=== PATIENT | male | born 1975 | race Caucasian/White ===

== ENCOUNTER 2025-01-19 10:01 | Inpatient (IN) | payer OTHER ==
--- NOTE | 2025-01-19 10:44 | ED ---
SOB HPI - General Chief Complaint: Shortness of Breath Stated Complaint: KALPESH Time Seen by Provider: 01/19/25 10:16 Source: patient, RN notes reviewed Mode of arrival: ambulatory Limitations: no limitations - History of Present Illness Initial Comments: This is a 49-year-old male smoker with history of asthma complaining of SOB and wheezing x 4 days. Patient endorses associated chills and headache. Endorses use of albuterol and Medrol dosepak for the past 3 days at home, receiving a DuoNeb treatment at urgent care before being referred to ER for further workup. Denies fever, hemoptysis, chest pain, dizziness, abdominal pain, N/V/D. MD Complaint: shortness of breath Onset/Timin -: days(s) Consistency: constant Improves With: nothing Known History Of: asthma Treatments Prior to Arrival: bronchodilator - Related Data Previous Rx's Medication Instructions Recorded Albuterol Inhaler [Ventolin Hfa 1 - 2 puff INHALATION Q6H PRN #2 01/24/25 Inhaler] each Aspirin EC [Ecotrin Low Dose] 81 mg PO DAILY #30 tab 01/24/25 Atorvastatin Calcium [Lipitor] 40 mg PO DAILY #30 tab 01/24/25 Budesonide-Formot 160-4.5 Mcg 2 puff INHALATION RT-BID #1 each 01/24/25 [Symbicort 160-4.5 Mcg Inhaler] Dapagliflozin Propanediol [Farxiga] 10 mg PO DAILY #30 tab 01/24/25 Furosemide [Lasix] 40 mg PO DAILY #30 tab 01/24/25 Losartan [Cozaar] 100 mg PO DAILY #60 tab 01/24/25 Spironolactone [Aldactone] 50 mg PO DAILY #60 tab 01/24/25 carvediloL [Coreg*] 12.5 mg PO BID-W/MEALS #60 tab 01/24/25 hydrALAZINE HCL [Apresoline] 50 mg PO TID #90 tab 01/24/25 predniSONE [Deltasone] 40 mg PO DAILY #6 tab 01/24/25 Allergies Allergy/AdvReac Type Severity Reaction Status Date / Time No Known Allergies Allergy Verified 01/19/25 11:26 Review of Systems ROS Statement: Those systems with pertinent positive or pertinent negative responses have been documented in the HPI. ROS Other: All systems not noted in ROS Statement are negative. Past Medical History Past Medical History: Asthma Past Surgical History: Hernia Repair Smoking Status: Current every day smoker General Exam Limitations: no limitations General appearance: alert, in no apparent distress Head exam: Present: atraumatic, normocephalic, normal inspection Eye exam: Present: normal appearance, PERRL, EOMI. Absent: scleral icterus, conjunctival injection, periorbital swelling ENT exam: Present: normal exam, normal oropharynx, mucous membranes moist, TM's normal bilaterally Neck exam: Present: normal inspection. Absent: tenderness, meningismus, lymphadenopathy Respiratory exam: Present: wheezes, accessory muscle use, decreased breath sounds, prolonged expiratory. Absent: respiratory distress, rales, rhonchi, stridor Cardiovascular Exam: Present: regular rate, normal rhythm, normal heart sounds. Absent: systolic murmur, diastolic murmur, rubs, gallop, clicks GI/Abdominal exam: Present: soft, normal bowel sounds. Absent: distended, tenderness, guarding, rebound, rigid Extremities exam: Present: normal inspection, full ROM, normal capillary refill. Absent: tenderness, pedal edema, joint swelling, calf tenderness Back exam: Present: normal inspection Neurological exam: Present: alert, oriented X3, CN II-XII intact Psychiatric exam: Present: normal affect, normal mood Skin exam: Present: warm, dry, intact, normal color. Absent: rash Course Vital Signs 01/19/25 01/19/25 01/19/25 10:12 10:14 10:17 Temperature 98.1 F 98.5 F Pulse Rate 94 100 Pulse Rate [ Pulse Oximetery ] Respiratory 20 28 H 28 H Rate Blood Pressure 159/92 155/103 Blood Pressure [Left Arm] O2 Sat by Pulse 95 95 Oximetry 01/19/25 01/19/25 01/19/25 11:47 12:39 12:49 Temperature Pulse Rate 95 90 92 Pulse Rate [ Pulse Oximetery ] Respiratory 28 H Rate Blood Pressure 155/97 Blood Pressure [Left Arm] O2 Sat by Pulse 95 Oximetry 01/19/25 01/19/25 01/19/25 12:52 14:28 16:19 Temperature 98.0 F Pulse Rate 90 88 Pulse Rate [ 98 Pulse Oximetery ] Respiratory 20 18 Rate Blood Pressure 156/108 Blood Pressure 166/92 [Left Arm] O2 Sat by Pulse 96 93 L Oximetry 01/19/25 01/19/25 16:33 17:42 Temperature 98.8 F Pulse Rate 86 93 Pulse Rate [ Pulse Oximetery ] Respiratory 18 Rate Blood Pressure 172/95 Blood Pressure [Left Arm] O2 Sat by Pulse 94 L Oximetry Medical Decision Making - Medical Decision Making Was pt. sent in by a medical professional or institution (, PA, CONSTRUCTION ACCOUNTANT, urgent care, hospital, or long-term...) When possible be specific @ -No Did you speak to anyone other than the patient for history (EMS, parent, family, police, friend...)? What history was obtained from this source @ -No Did you review nursing and triage notes (agree or disagree)? Why? @ -I reviewed and agree with nursing and triage notes Were old charts reviewed (outside hosp., previous admission, EMS record, old EKG, old radiological studies, urgent care reports/EKG's, long-term records)? Report findings @ -No old charts were reviewed Differential Diagnosis (chest pain, altered mental status, abdominal pain women, abdominal pain men, vaginal bleeding, weakness, fever, dyspnea, syncope, headache, dizziness, GI bleed, back pain, seizure, CVA, palpatations, mental health, musculoskeletal)? @ -Differential Dyspnea: Coronary syndrome, arrhythmia, tamponade, asthma, COPD, pulmonary embolism, pneumonia, pneumothorax, pulmonary effusion, anaphylaxis, diabetic ketoacidosis, flailed chest, pulmonary contusion, diaphragmatic rupture, anemia, neuromuscular, this is not meant to be an all-inclusive list. EKG interpreted by me (3pts min.). @ -Sinus rhythm with LVH and T wave inversion in leads II, III, V5 and V6. No ST deviation. Ventricular rate 95 bpm, LUCIE 129 ms, QRS duration 92 ms, QTc 413 ms. X-rays interpreted by me (1pt min.). @ -CXR shows mild/moderate vascular congestion/edema. CT interpreted by me (1pt min.). @ -None done U/S interpreted by me (1pt. min.). @ -None done What testing was considered but not performed or refused? (CT, X-rays, U/S, labs)? Why? @ -None What meds were considered but not given or refused? Why? @ -None Did you discuss the management of the patient with other professionals (professionals i.e. , PA, CONSTRUCTION ACCOUNTANT, lab, RT, psych nurse, health and social care teacher, barrel liner, teacher, lead security officer, case preparer and liner)? Give summary @ -Spoke to Dr. Grijalva for admission of patient Was smoking cessation discussed for >3mins.? @ -No Was critical care preformed (if so, how long)? @ -No Were there social determinants of health that impacted care today? How? (Homelessness, low income, unemployed, alcoholism, drug addiction, transportation, low edu. Level, literacy, decrease access to med. care, skilled nursing, rehab)? @ -No Was there de-escalation of care discussed even if they declined (Discuss DNR or withdrawal of care, Hospice)? DNR status @ -No What co-morbidities impacted this encounter? (DM, HTN, Smoking, COPD, CAD, Cancer, CVA, ARF, Chemo, Hep., AIDS, mental health diagnosis, sleep apnea, morbid obesity)? @ -None Was patient admitted / discharged? Hospital course, mention meds given and route, prescriptions, significant lab abnormalities, going to OR and other pertinent info. @ -Lab work generally unremarkable with hyperglycemia 114, BNP 1.6K and negative troponin. Cepheid test negative. CXR shows mild/moderate vascular congestion /edema. Patient initially provided DuoNeb and IV Solu-Medrol. IV Lasix given for pulmonary vascular congestion. Spoke to Dr. Grijalva for admission of patient for dyspnea with tachypnea and pulmonary vascular congestion. Discussed patient with Dr. Raman. Undiagnosed new problem with uncertain prognosis? @ -Pulmonary edema Drug Therapy requiring intensive monitoring for toxicity (Heparin, Nitro, Insulin, Cardizem)? @ -No Were any procedures done? @ -No Diagnosis/symptom? @ -Dyspnea, pulmonary edema Acute, or Chronic, or Acute on Chronic? @ -Acute Uncomplicated (without systemic symptoms) or Complicated (systemic symptoms)? @ -Complicated Side effects of treatment? @ -No Exacerbation, Progression, or Severe Exacerbation? @ -Exacerbation Poses a threat to life or bodily function? How? (Chest pain, USA, CT, pneumonia, PE, COPD, DKA, ARF, appy, cholecystitis, CVA, Diverticulitis, Homicidal, Suicidal, threat to staff... and all critical care pts) @ -Pulmonary edema, respiratory failure - Lab Data Result diagrams: 01/19/25 10:40 01/23/25 06:41 Lab Results 01/19/25 01/19/25 01/19/25 Range/Units 10:40 10:40 10:40 WBC 10.6 (3.8-10.6) k/uL RBC 5.36 (4.30-5.90) m/uL Hgb 14.8 (13.0-17.5) gm/dL Hct 46.1 (39.0-53.0) % MCV 86.1 (80.0-100.0) fL MCH 27.7 (25.0-35.0) pg MCHC 32.2 (31.0-37.0) g/dL RDW 14.3 (11.5-15.5) % Plt Count 227 (150-450) k/uL MPV 7.7 Neutrophils % 79 % Lymphocytes % 14 % Monocytes % 5 % Eosinophils % 1 % Basophils % 0 % Neutrophils # 8.3 H (1.3-7.7) k/uL Lymphocytes # 1.4 (1.0-4.8) k/uL Monocytes # 0.5 (0-1.0) k/uL Eosinophils # 0.1 (0-0.7) k/uL Basophils # 0.0 (0-0.2) k/uL PT 11.4 (10.0-12.5) sec INR 1.0 (<1.2) APTT 31.7 H (22.0-30.0) sec VBG pH (7.31-7.41) VBG pCO2 (37-51) mmHg VBG HCO3 (24-28) mmol/L Sodium 138 (137-145) mmol/L Potassium 3.7 (3.5-5.1) mmol/L Chloride 102 (98-107) mmol/L Carbon Dioxide 25 (22-30) mmol/L Anion Gap 11 mmol/L BUN 18 (9-20) mg/dL Creatinine 0.83 (0.66-1.25) mg/dL Est GFR (CKD-EPI)AfAm >90 (>60 ml/min/1.73 sqM) Est GFR (CKD-EPI)NonAf >90 (>60 ml/min/1.73 sqM) Glucose 114 H (74-99) mg/dL Plasma Lactic Acid Amos (0.7-2.0) mmol/L Calcium 9.5 (8.4-10.2) mg/dL Magnesium 1.8 (1.6-2.3) mg/dL Total Bilirubin 0.7 (0.2-1.3) mg/dL AST 25 (17-59) U/L ALT 20 (4-49) U/L Alkaline Phosphatase 66 (38-126) U/L Troponin I (0.000-0.034) ng/mL NT-Pro-B Natriuret Pep 1670 pg/mL Total Protein 6.9 (6.3-8.2) g/dL Albumin 4.3 (3.5-5.0) g/dL Influenza Type A (PCR) (Not Detectd) Influenza Type B (PCR) (Not Detectd) RSV (PCR) (Not Detectd) SARS-CoV-2 (PCR) (Not Detectd) 01/19/25 01/19/25 01/19/25 Range/Units 10:40 10:40 10:41 WBC (3.8-10.6) k/uL RBC (4.30-5.90) m/uL Hgb (13.0-17.5) gm/dL Hct (39.0-53.0) % MCV (80.0-100.0) fL MCH (25.0-35.0) pg MCHC (31.0-37.0) g/dL RDW (11.5-15.5) % Plt Count (150-450) k/uL MPV Neutrophils % % Lymphocytes % % Monocytes % % Eosinophils % % Basophils % % Neutrophils # (1.3-7.7) k/uL Lymphocytes # (1.0-4.8) k/uL Monocytes # (0-1.0) k/uL Eosinophils # (0-0.7) k/uL Basophils # (0-0.2) k/uL PT (10.0-12.5) sec INR (<1.2) APTT (22.0-30.0) sec VBG pH (7.31-7.41) VBG pCO2 (37-51) mmHg VBG HCO3 (24-28) mmol/L Sodium (137-145) mmol/L Potassium (3.5-5.1) mmol/L Chloride (98-107) mmol/L Carbon Dioxide (22-30) mmol/L Anion Gap mmol/L BUN (9-20) mg/dL Creatinine (0.66-1.25) mg/dL Est GFR (CKD-EPI)AfAm (>60 ml/min/1.73 sqM) Est GFR (CKD-EPI)NonAf (>60 ml/min/1.73 sqM) Glucose (74-99) mg/dL Plasma Lactic Acid Amos 1.3 (0.7-2.0) mmol/L Calcium (8.4-10.2) mg/dL Magnesium (1.6-2.3) mg/dL Total Bilirubin (0.2-1.3) mg/dL AST (17-59) U/L ALT (4-49) U/L Alkaline Phosphatase (38-126) U/L Troponin I 0.016 (0.000-0.034) ng/mL NT-Pro-B Natriuret Pep pg/mL Total Protein (6.3-8.2) g/dL Albumin (3.5-5.0) g/dL Influenza Type A (PCR) Not Detected (Not Detectd) Influenza Type B (PCR) Not Detected (Not Detectd) RSV (PCR) Not Detected (Not Detectd) SARS-CoV-2 (PCR) Not Detected (Not Detectd) 01/19/25 Range/Units 10:41 WBC (3.8-10.6) k/uL RBC (4.30-5.90) m/uL Hgb (13.0-17.5) gm/dL Hct (39.0-53.0) % MCV (80.0-100.0) fL MCH (25.0-35.0) pg MCHC (31.0-37.0) g/dL RDW (11.5-15.5) % Plt Count (150-450) k/uL MPV Neutrophils % % Lymphocytes % % Monocytes % % Eosinophils % % Basophils % % Neutrophils # (1.3-7.7) k/uL Lymphocytes # (1.0-4.8) k/uL Monocytes # (0-1.0) k/uL Eosinophils # (0-0.7) k/uL Basophils # (0-0.2) k/uL PT (10.0-12.5) sec INR (<1.2) APTT (22.0-30.0) sec VBG pH 7.42 H (7.31-7.41) VBG pCO2 42 (37-51) mmHg VBG HCO3 27 (24-28) mmol/L Sodium (137-145) mmol/L Potassium (3.5-5.1) mmol/L Chloride (98-107) mmol/L Carbon Dioxide (22-30) mmol/L Anion Gap mmol/L BUN (9-20) mg/dL Creatinine (0.66-1.25) mg/dL Est GFR (CKD-EPI)AfAm (>60 ml/min/1.73 sqM) Est GFR (CKD-EPI)NonAf (>60 ml/min/1.73 sqM) Glucose (74-99) mg/dL Plasma Lactic Acid Amos (0.7-2.0) mmol/L Calcium (8.4-10.2) mg/dL Magnesium (1.6-2.3) mg/dL Total Bilirubin (0.2-1.3) mg/dL AST (17-59) U/L ALT (4-49) U/L Alkaline Phosphatase (38-126) U/L Troponin I (0.000-0.034) ng/mL NT-Pro-B Natriuret Pep pg/mL Total Protein (6.3-8.2) g/dL Albumin (3.5-5.0) g/dL Influenza Type A (PCR) (Not Detectd) Influenza Type B (PCR) (Not Detectd) RSV (PCR) (Not Detectd) SARS-CoV-2 (PCR) (Not Detectd) Disposition Clinical Impression: Pulmonary edema Disposition: ADMITTED IP TO THIS HOSP Condition: Fair Is patient prescribed a controlled substance at d/c from ED?: No Time of Disposition: 12: Decision Date: 01/19/25 Decision Time: 12:27
[2025-01-19] MEDS: methylPREDNISolone SOD SUCCI 125 MG/2 ML VIAL IV STA (10:58)
[2025-01-19 11:14] LABS: VBG PH 7.42 (7.31-7.41)
[2025-01-19 11:18] LABS: Basophils % (A) 0 %; Eosinophils # (A) 0.1 k/uL (0-0.7); Eosinophils % (A) 1 %; HCT 46.1 % (39.0-53.0); HGB 14.8 gm/dL (13.0-17.5); Lymphocytes # (A) 1.4 k/uL (1.0-4.8); Lymphocytes % (A) 14 %; MCH 27.7 pg (25.0-35.0); MCHC 32.2 g/dL (31.0-37.0); MCV 86.1 fL (80.0-100.0); Mean Platelet Volume 7.7; Monocytes # (A) 0.5 k/uL (0-1.0); Monocytes % (A) 5 %; Neutrophils # (A) 8.3 k/uL (1.3-7.7); Neutrophils % (A) 79 %; Platelet Count 227 k/uL (150-450); RBC 5.36 m/uL (4.30-5.90); RDW 14.3 % (11.5-15.5); WBC 10.6 k/uL (3.8-10.6)
--- NOTE | 2025-01-19 11:20 | XR ---
EXAMINATION TYPE: XR chest 2V DATE OF EXAM: 01/19/2025 11:08 AM COMPARISON: None. CLINICAL INDICATION: Male, 49 years old with history of difficulty breathing, TECHNIQUE: Frontal and lateral views of the chest are obtained. FINDINGS: There is bilateral perihilar increased markings. No pleural effusion or pneumothorax seen bilaterally. The cardiac silhouette size is within normal limits. The osseous structures are intact . IMPRESSION: Suspect mild to moderate central vascular congestion or edema. Correlate for fluid overlo ad state. [facility], , 01/19/2025 11:18 AM
[2025-01-19 11:26] LABS: ALT 20 U/L (4-49); AST 25 U/L (17-59); African American GFR (CKD) >90 (>60 ml/min/1.73 sqM); Albumin 4.3 g/dL (3.5-5.0); Alkaline Phosphatase 66 U/L (38-126); Anion Gap 11 mmol/L; Blood Urea Nitrogen 18 mg/dL (9-20); Calcium 9.5 mg/dL (8.4-10.2); Carbon Dioxide 25 mmol/L (22-30); Chloride 102 mmol/L (98-107); Glucose 114 mg/dL (74-99); Magnesium 1.8 mg/dL (1.6-2.3); Non-African American GFR(CKD) >90 (>60 ml/min/1.73 sqM); Potassium 3.7 mmol/L (3.5-5.1); Sodium 138 mmol/L (137-145); Total Bilirubin 0.7 mg/dL (0.2-1.3); Total Protein 6.9 g/dL (6.3-8.2)
[2025-01-19 11:33] LABS: NT-Pro-B-Type Natriuretic Pept 1670 pg/mL
[2025-01-19 11:39] LABS: Partial Thromboplastin Time 31.7 sec (22.0-30.0); Prothrombin Time 11.4 sec (10.0-12.5)
[2025-01-19 11:54] LABS: Influenza A Not Detected (Not Detectd); Influenza B Not Detected (Not Detectd); RSV Not Detected (Not Detectd)
[2025-01-19] MEDS: IPRATROPIUM-ALBUTEROL 3 ML NEB INHALATION STA (12:38)
[2025-01-19] MEDS: FUROSEMIDE 10 MG/ML 4 ML VIAL IV STA (12:50)
[2025-01-19] MEDS ORDERED: NALOXONE 0.4 MG/ML 1 ML VIAL IV PRN (13:10)
[2025-01-19] MEDS ORDERED: KETOROLAC 15 MG/ML 1 ML VIAL IVP PRN (13:10)
[2025-01-19] MEDS ORDERED: ONDANSETRON 4 MG/2 ML VIAL IVP PRN (13:10)
[2025-01-19] MEDS: methylPREDNISolone SOD SUCCI 125 MG/2 ML VIAL IV SCH ×2 (13:14→18:21)
[2025-01-19] MEDS: IPRATROPIUM-ALBUTEROL 3 ML NEB INHALATION SCH (13:23)
[2025-01-19] MEDS ORDERED: ALPRAZolam 0.5 MG TAB PO PRN (14:01)
[2025-01-19] MEDS: ALPRAZolam 0.5 MG TAB PO STA (14:36)
[2025-01-19] MEDS ORDERED: methylPREDNISolone SOD SUCCI 125 MG/2 ML VIAL IV SCH (18:00)
--- NOTE | 2025-01-19 18:43 | P.HPIM ---
History of Present Illness This is a pleasant 49 years old male with no significant past medical history Presents because of dyspnea for 4 to 5 days associated with cough and white phlegm No chest pain Patient smokes about 1 pack/day and he was counseled to quit and he agrees to the nicotine patch patient denies GI/ symptoms Has little headache but no dizziness weakness numbness No significant leg swelling He is not using any home oxygen and currently he is on 2 L oxygen via nasal cannula with oxygen saturation 94% Patient is hemodynamically stable though, afebrile, blood pressure slightly elevated CBC, BMP, liver enzymes INR and troponin were negative Mild virus Influenza A and type B, RSV, SARS (coronavirus) are undetected Chest x-ray read by radiologist as mild to moderate CHF, when I reviewed the chest x-ray myself looks more like COPD changes proBNP is mildly elevated 1670 EKG showing sinus rhythm at 95 with LVH criteria and some mild ST depression in the lateral lead related to her hypertrophy changes Review of Systems Review of systems CONSTITUTIONAL: No fever, no malaise, no fatigue. HEENT: No recent visual problems or hearing problems. Denied any sore throat. CARDIOVASCULAR: No orthopnea, PND, no palpitations, no syncope. PULMONARY: No chest wall tenderness, no hemoptysis. GASTROINTESTINAL: No diarrhea, no nausea, no vomiting, no abdominal pain. Normoactive bowel sounds. NEUROLOGICAL: No headaches, no weakness, no numbness. HEMATOLOGICAL: Denies any bleeding or petechiae. GENITOURINARY: Denies any burning micturition, frequency, or urgency. MUSCULOSKELETAL/RHEUMATOLOGICAL: Denies any joint pain, swelling, or any muscle pain. ENDOCRINE: Denies any polyuria or polydipsia. Past Medical History Past Medical History: Asthma History of Any Multi-Drug Resistant Organisms: None Reported Past Surgical History: Hernia Repair Past Anesthesia/Blood Transfusion Reactions: No Reported Reaction Smoking Status: Current every day smoker Medications and Allergies Home Medications Medication Instructions Recorded Confirmed Type No Known Home Medications 01/19/25 01/19/25 History Allergies Allergy/AdvReac Type Severity Reaction Status Date / Time No Known Allergies Allergy Verified 01/19/25 11:26 Physical Exam Vitals: Vital Signs Temp Pulse Pulse Resp BP BP Pulse Ox 01/19/25 17:42 98.8 F 93 18 172/95 94 L 01/19/25 16:33 86 01/19/25 16:19 88 01/19/25 14:28 98.0 F 98 18 166/92 93 L 01/19/25 12:52 90 20 156/108 96 01/19/25 12:49 92 01/19/25 12:39 90 01/19/25 11:47 95 28 H 155/97 95 01/19/25 10:17 28 H 01/19/25 10:14 98.5 F 100 28 H 155/103 95 01/19/25 10:12 98.1 F 94 20 159/92 95 Intake and Output 01/19/25 01/19/25 01/19/25 06:59 14:59 22:59 Other: Weight 75.296 kg GENERAL: The patient is alert and oriented x3, not in any acute distress. Well developed, well nourished. HEENT: Pupils are round and equally reacting to light. EOMI. No scleral icterus. No conjunctival pallor. Normocephalic, atraumatic. No pharyngeal erythema. No thyromegaly. CARDIOVASCULAR: S1 and S2 present. No murmurs, rubs, or gallops. -PULMONARY: Chest is clear to auscultation, scattered wheezing , no crackles. ABDOMEN: Soft, nontender, nondistended, normoactive bowel sounds. No palpable organomegaly. MUSCULOSKELETAL: No joint swelling or deformity. EXTREMITIES: No cyanosis, clubbing, or pedal edema. NEUROLOGICAL: Gross neurological examination did not reveal any focal deficits. SKIN: No rashes. no petechiae. Results CBC & Chem 7: 01/19/25 10:40 01/19/25 10:40 Labs: Abnormal Lab Results - Last 24 Hours (Table) 01/19/25 01/19/25 01/19/25 Range/Units 10:40 10:40 10:40 Neutrophils # 8.3 H (1.3-7.7) k/uL APTT 31.7 H (22.0-30.0) sec VBG pH (7.31-7.41) Glucose 114 H (74-99) mg/dL 01/19/25 Range/Units 10:41 Neutrophils # (1.3-7.7) k/uL APTT (22.0-30.0) sec VBG pH 7.42 H (7.31-7.41) Glucose (74-99) mg/dL Thrombosis Risk Factor Assmnt - Choose All That Apply Each Factor Represents 1 point: Age 41-60 years Thrombosis Risk Factor Assessment Total Risk Factor Score: 1 Thrombosis Risk Factor Assessment Level: Low Risk Assessment and Plan Assessment: Acute COPD exacerbation Mild acute CHF, unknown ejection fraction Possible left ventricular hypertrophy Hypertension, uncontrolled Nicotine dependence Plan: Continue with IV Solu-Medrol Continue with updraft Pulmonary team consult Cardiology team consult Check echocardiogram Further recommendation based on the clinical course DVT prophylaxis subcutaneous heparin GI prophylaxis Pepcid Prognosis is guarded
[2025-01-19] MEDS: HEPARIN SODIUM,PORCINE 5,000 UNIT/ML 1 ML VIAL SQ SCH (20:15)
[2025-01-19] MEDS: FAMOTIDINE 20 MG/2 ML VIAL IV SCH (20:15)
--- NOTE | 2025-01-20 01:43 | P.CNPUL ---
History of Present Illness Consult date: 01/20/25 Requesting physician: Darwin Grijalva Reason for consult: COPD Chief complaint: Shortness of breath History of present illness: Patient is a 49-year-old male with past medical history significant for asthma/COPD. He is a tobacco current smoker and carries a significant smoking history of 1 to 1-1/2 packs/day for over 30 years. Does have history of childhood asthma. Patient states over the last month he is been more short of breath with intermittent and wheezing on exertion. Over the last 2 to 3 days this is progressively worsened. Did go to urgent care center and was given DuoNeb treatments without much relief. He was directed to emergency department. Workup in the emergency department includes a chest x-ray which does not show any acute cardiopulmonary process. No focal infiltrates or evidence of pneumonia. No pleural effusions, pneumothoraces. CBC unremarkable for leukocytosis. Hemoglobin stable at 14.8 g/dL. Platelets 227. VBG showing a pH of 7.42 and a pCO2 of 42. CMP also unremarkable, electrolytes WDL, creatinine 0.83, glucose 114, LFTs not elevated. Troponin 0.016, NT proBNP 1670. EKG: Sinus rhythm, rate 95 bpm, nonspecific ST/T wave changes. Viral screen negative for influenza, RSV, COVID. Patient currently being evaluated on the cardiac stepdown unit. Currently on 2 L/min nasal cannula. Has diffuse expiratory wheezing. Endorses severe shortness of breath, chest tightness, nonproductive coughing which has worsened over the last 2 to 3 days. Denies any sick contacts. Denies rhinorrhea, sore throat, sinus congestion. Denies any fever/chills, sputum production, hemoptysis, chest pain. Denies any lower extremity swelling, orthopnea, PND. He has been started on a combination of bronchodilators and IV Solu-Medrol. Most recent vital signs: Temperature 98.3 F, heart rate 98 bpm, blood pressure 149/86 mmHg, nontachypneic, SpO2 reading 96% on 2 L/min nasal cannula. Review of Systems Constitutional: Reports fatigue, Denies chills, Denies fever, Denies night sweats, Denies poor appetite, Denies weight gain, Denies weight loss Ears, nose, mouth and throat: Reports as per HPI Cardiovascular: Denies chest pain, Denies leg edema, Denies lightheadedness, Denies orthopnea, Denies palpitations, Denies paroxysmal nocturnal dyspnea, Denies syncope Respiratory: Reports as per HPI Gastrointestinal: Denies abdominal pain, Denies diarrhea, Denies nausea, Denies vomiting Genitourinary: Denies dysuria Musculoskeletal: Denies limitation of motion Integumentary: Denies rash Neurological: Denies seizures, Denies syncope Psychiatric: Denies anxiety, Denies depression Past Medical History Past Medical History: Asthma History of Any Multi-Drug Resistant Organisms: None Reported Past Surgical History: Hernia Repair Past Anesthesia/Blood Transfusion Reactions: No Reported Reaction Smoking Status: Current every day smoker Medications and Allergies Home Medications Medication Instructions Recorded Confirmed Type No Known Home Medications 01/19/25 01/19/25 History Allergies Allergy/AdvReac Type Severity Reaction Status Date / Time No Known Allergies Allergy Verified 01/19/25 11:26 Physical Exam Vitals: Vital Signs Temp Pulse Pulse Resp BP BP Pulse Ox 01/19/25 20:32 98 01/19/25 20:24 96 01/19/25 20:00 98.3 F 97 18 149/86 96 01/19/25 17:42 98.8 F 93 18 172/95 94 L 01/19/25 16:33 86 01/19/25 16:19 88 01/19/25 14:28 98.0 F 98 18 166/92 93 L 01/19/25 12:52 90 20 156/108 96 01/19/25 12:49 92 01/19/25 12:39 90 01/19/25 11:47 95 28 H 155/97 95 01/19/25 10:17 28 H 01/19/25 10:14 98.5 F 100 28 H 155/103 95 01/19/25 10:12 98.1 F 94 20 159/92 95 Intake and Output 01/19/25 01/19/25 01/20/25 14:59 22:59 06:59 Other: Voiding Method Toilet Urinal Weight 75.296 kg GENERAL EXAM: Alert, 49-year-old male, sitting erect in bed, fairly comfortable in no apparent distress. HEAD: Normocephalic and atraumatic EYES: Normal reaction of pupils, equal size. NOSE: Clear with pink turbinates. THROAT: No erythema or exudates. NECK: No masses, no JVD. CHEST: No chest wall deformity. LUNGS: Equal air entry with diffuse expiratory wheezing heard throughout. On 2 L/min nasal cannula. No conversational dyspnea or accessory muscle use.. CVS: S1 and S2 normal with no audible murmur, regular rhythm. No extra heart sounds ABDOMEN: No hepatosplenomegaly, active bowel sounds, no guarding or rigidity. SPINE: No scoliosis or deformity SKIN: No rashes CENTRAL NERVOUS SYSTEM: No focal deficits, tone is normal in all 4 extremities. EXTREMITIES: There is no peripheral edema, clubbing, or cyanosis. Peripheral pulses are intact. Results - Laboratory Findings CBC and BMP: 01/19/25 10:40 01/19/25 10:40 PT/INR, D-dimer PT 11.4 sec (10.0-12.5) 01/19/25 10:40 INR 1.0 (<1.2) 01/19/25 10:40 Abnormal lab findings: Abnormal Labs 01/19/25 01/19/25 01/19/25 10:40 10:40 10:40 Neutrophils # 8.3 H APTT 31.7 H VBG pH Glucose 114 H 01/19/25 10:41 Neutrophils # APTT VBG pH 7.42 H Glucose - Diagnostic Findings Chest x-ray: image reviewed Assessment and Plan Assessment: Acute exacerbation of asthma/COPD Acute hypoxemic respiratory failure, currently on 2 L/min nasal cannula, secondary to above Chronic ongoing tobacco dependence, with over [id number] history Hypertension Plan: Patient's medications, labs, chest x-ray reviewed No focal infiltrates or evidence of pneumonia Viral screen unremarkable for influenza A/B, RSV, COVID Continue combination of DuoNebs [id number] and IV Solu-Medrol Add Symbicort inhaler Smoking cessation counseling performed Nicotine patch previously offered Echocardiogram was previously ordered Cardiology also asked to see this patient We will continue to follow I have personally seen and examined the patient, performed the documentation and the assessment and plan as written. Number of minutes spent on the visit:20 Time with Patient: Greater than 30
[2025-01-20] MEDS: NICOTINE 21MG/24HR PATCH TRANSDERM SCH (03:38)
[2025-01-20] MEDS: IPRATROPIUM-ALBUTEROL 3 ML NEB INHALATION PRN (05:20)
--- NOTE | 2025-01-20 07:59 | CA ---
Transthoracic Echo Report Name: Compa Schmitz Age: 49 Gender: M : 1975 Exam Date: 01/19/2025 18:27 Exam Location: [facility] Ht (in): 66 Wt (lb): 166 Ordering Physician: Darwin Grijalva MD Attending/Referring Phys: [id number], Rudi [employer] Operation Coordinator Bhavana Mcwilliams RDCS Procedure CPT: Indications: Chest Pain Cardiac Hx: Technical Quality: Good Contrast 1: Total Dose (mL): Contrast 2: Total Dose (mL): MEASUREMENTS (Male / Female) Normal Values 2D ECHO LV Diastolic Diameter PLAX 6.8 cm 4.2 - 5.9 / 3.9 - 5.3 cm LV Systolic Diameter PLAX 5.9 cm IVS Diastolic Thickness 0.9 cm 0.6 - 1.0 / 0.6 - 0.9 cm LVPW Diastolic Thickness 0.9 cm 0.6 - 1.0 / 0.6 - 0.9 cm LV Relative Wall Thickness 0.3 LVOT Diameter 2.3 cm LV Diastolic Volume MOD BP 224.1 cm??? 67 - 155 / 56 - 104 cm??? LV Systolic Volume MOD BP 153.1 cm??? 22 - 58 / 19 - 49 cm??? LV Ejection Fraction MOD BP 31.7 % >= 55 % LV Cardiac Index MOD BP 3421.0 cm???/min???m??? LV Diastolic Volume MOD 4C 219.7 cm??? LV Systolic Volume MOD 4C 140.4 cm??? LV Ejection Fraction MOD 4C 36.1 % LV Cardiac Index MOD 4C 3825.3 cm???/min???m??? LV Diastolic Length 4C 9.4 cm LV Systolic Length 4C 8.4 cm LV Diastolic Volume MOD 2C 220.2 cm??? LV Systolic Volume MOD 2C 165.2 cm??? LV Ejection Fraction MOD 2C 25.0 % LV Cardiac Index MOD 2C 2649.0 cm???/min???m??? LV Diastolic Length 2C 9.8 cm LV Systolic Length 2C 8.5 cm LA Volume 59.1 cm??? 18 - 58 / 22 - 52 cm??? LA Volume Index 31.3 cm???/m??? 16 - 28 cm???/m??? Ascending Aorta Diameter 3.2 cm M-MODE LV Diastolic Diameter MM 6.8 cm 4.2 - 5.9 / 3.9 - 5.3 cm LV Systolic Diameter MM 5.8 cm LV Cardiac Index MM Eusebioich 3633.4 cm???/min???m??? IVS Diastolic Thickness MM 1.8 cm 0.6 - 1.0 / 0.6 - 0.9 cm LVPW Diastolic Thickness MM 1.4 cm 0.6 - 1.0 / 0.6 - 0.9 cm LV Relative Wall Thickness MM 0.5 0.24 - 0.42 / 0.22 - 0.42 LV Mass Index MM 299.1 g/m??? 49 - 115 / 43 - 95 g/m??? DOPPLER AV Peak Velocity 154.6 cm/s AV Peak Gradient 9.6 mmHg AV Mean Velocity 105.1 cm/s AV Mean Gradient 5.1 mmHg AV Velocity Time Integral 25.0 cm LVOT Peak Velocity 123.4 cm/s LVOT Peak Gradient 6.1 mmHg LVOT Velocity Time Integral 20.5 cm LVOT Stroke Volume 87.1 cm??? LVOT Stroke Volume Index 47.1 ml/m??? LVOT Cardiac Index 4197.4 cm???/min???m??? AV Area Cont Eq vti 3.5 cm??? AV Area Cont Eq pk 3.4 cm??? MV Area PHT 5.4 cm??? Mitral E Point Velocity 64.2 cm/s Mitral A Point Velocity 65.0 cm/s Mitral E to A Ratio 1.0 MV Deceleration Time 140.2 ms PV Peak Velocity 113.7 cm/s PV Peak Gradient 5.2 mmHg FINDINGS Left Ventricle Left ventricular ejection fraction is estimated at 25-30 %. Mildly increased posterior wall thickness. Severely increased left ventricular diastolic volume. Severely decreased left ventricular ejection fraction. Right Ventricle Normal right ventricular size and function. Unable to estimate the right ventricular systolic pressure. Right Atrium Normal right atrial size. Left Atrium Mildly increased left atrial volume. Mitral Valve Structurally normal mitral valve. No evidence for mitral valve prolapse. No mitral stenosis. Mild mitral regurgitation. Aortic Valve Trileaflet aortic valve. No aortic valve stenosis or regurgitation. Tricuspid Valve Structurally normal tricuspid valve. No tricuspid stenosis. Trace tricuspid regurgitation. Pulmonic Valve Structurally normal pulmonic valve. No pulmonic stenosis. No pulmonic regurgitation. Pericardium No pericardial effusion. Aorta Normal size aortic root and proximal ascending aorta. CONCLUSIONS Left ventricular ejection fraction is estimated at 25-30 %. Dilated LV cavity mild LA dilatation mild mitral regurgitaion Previewed by: Dr Daniel Kwon (Electronically Signed) Final Date: 20 January 2025 07:58
[2025-01-20] MEDS: SYMBICORT 160-4.5 MCG INHALER INHALATION SCH (09:00)
[2025-01-20] MEDS: IPRATROPIUM-ALBUTEROL 3 ML NEB INHALATION SCH (09:00)
--- NOTE | 2025-01-20 09:36 | P.PN ---
Subjective This is a pleasant 49 years old male with no significant past medical history Presents because of dyspnea for 4 to 5 days associated with cough and white phlegm No chest pain Patient smokes about 1 pack/day and he was counseled to quit and he agrees to the nicotine patch patient denies GI/ symptoms Has little headache but no dizziness weakness numbness No significant leg swelling He is not using any home oxygen and currently he is on 2 L oxygen via nasal cannula with oxygen saturation 94% Patient is hemodynamically stable though, afebrile, blood pressure slightly elevated CBC, BMP, liver enzymes INR and troponin were negative Mild virus Influenza A and type B, RSV, SARS (coronavirus) are undetected Chest x-ray read by radiologist as mild to moderate CHF, when I reviewed the chest x-ray myself looks more like COPD changes proBNP is mildly elevated 1670 EKG showing sinus rhythm at 95 with LVH criteria and some mild ST depression in the lateral lead related to her hypertrophy changes 01/20 Patient feels the same still short of breath He still has extensive bilateral wheezing. Also with careful examination he has basal crepitation No leg edema. No other new complaints. Patient asking if he is going to stay 1 more night. Echocardiogram showed low ejection fraction 25 to 30% with dilated left ventricle. Patient currently remains on IV Solu-Medrol 60 mg. He received 1 time dose of IV Lasix, will going to place him on 40 mg of IV Lasix daily. Cardiology will evaluate the patient Review of systems CONSTITUTIONAL: No fever, no malaise, no fatigue. HEENT: No recent visual problems or hearing problems. Denied any sore throat. CARDIOVASCULAR: No orthopnea, PND, no palpitations, no syncope. HEMATOLOGICAL: Denies any bleeding or petechiae. GENITOURINARY: Denies any burning micturition, frequency, or urgency. MUSCULOSKELETAL/RHEUMATOLOGICAL: Denies any joint pain, swelling, or any muscle pain. ENDOCRINE: Denies any polyuria or polydipsia. Active Medications Generic Name Dose Route Start Last Admin Trade Name Freq PRN Reason Stop Dose Admin Albuterol/Ipratropium 3 ml 01/20/25 08:00 01/20/25 09:00 Ipratropium-Albuterol 3 Ml Neb INHALATION 3 ml RT-QID EMILY Administration Albuterol/Ipratropium 3 ml 01/19/25 20:25 01/20/25 05:20 Ipratropium-Albuterol 3 Ml Neb INHALATION 3 ml RT-Q2H PRN Administration Shortness Of Breath Or Wheezing Alprazolam 0.5 mg 01/19/25 14:01 Alprazolam 0.5 Mg Tab PO BID PRN Anxiety Budesonide/Formoterol Fumarate 2 puff 01/20/25 08:00 01/20/25 09:00 Symbicort 160-4.5 Mcg Inhaler INHALATION 2 puff RT-BID EMILY Administration Famotidine 20 mg 01/19/25 21:00 01/20/25 08:11 Famotidine 20 Mg/2 Ml Vial IV 20 mg Q12HR EMILY Administration Furosemide 40 mg 01/20/25 09:45 Furosemide 10 Mg/Ml 4 Ml Vial IV DAILY [facility] Heparin Sodium (Porcine) 5,000 unit 01/19/25 21:00 01/20/25 08:11 Heparin Sodium,Porcine 5,000 Unit/Ml 1 Ml Vial SQ 5,000 unit Q12HR EMILY Administration Ketorolac Tromethamine 15 mg 01/19/25 13:10 Ketorolac 15 Mg/Ml 1 Ml Vial IVP 01/22/25 13:11 Q6HR PRN Moderate Pain (Scale 4 to 6) Methylprednisolone Sodium Succinate 60 mg 01/19/25 18:00 01/20/25 04:59 Methylprednisolone Sod Succi 125 Mg/2 Ml Vial IV 60 mg Q6HR EMILY Administration Naloxone HCl 0.2 mg 01/19/25 13:10 Naloxone 0.4 Mg/Ml 1 Ml Vial IV Q2M PRN Opioid Reversal Nicotine 1 patch 01/19/25 18:45 01/20/25 08:09 Nicotine 21mg/24hr Patch TRANSDERM Not Given DAILY [facility] Ondansetron HCl 4 mg 01/19/25 13:10 Ondansetron 4 Mg/2 Ml Vial IVP Q8HR PRN Nausea And Vomiting Objective - Vital Signs Vital signs: Vital Signs Temp 98.0 F 01/20/25 08:00 Pulse 92 01/20/25 09:11 Resp 18 01/20/25 08:00 BP 162/101 01/20/25 08:00 Pulse Ox 98 01/20/25 09:01 FiO2 Intake & Output 01/19/25 01/20/25 01/20/25 18:59 06:59 18:59 Weight 75.296 kg 71.1 kg Other: Voiding Method Toilet Urinal # Voids 2 - Exam GENERAL: The patient is alert and oriented x3, not in any acute distress. Well developed, well nourished. HEENT: Pupils are round and equally reacting to light. EOMI. No scleral icterus. No conjunctival pallor. Normocephalic, atraumatic. No pharyngeal erythema. No thyromegaly. CARDIOVASCULAR: S1 and S2 present. No murmurs, rubs, or gallops. PULMONARY: Chest is clear to auscultation, n bilateral extensive wheezing , mild bilateral basal crackles. ABDOMEN: Soft, nontender, nondistended, normoactive bowel sounds. No palpable organomegaly. MUSCULOSKELETAL: No joint swelling or deformity. EXTREMITIES: No cyanosis, clubbing, or pedal edema. NEUROLOGICAL: Gross neurological examination did not reveal any focal deficits. SKIN: No rashes. no petechiae. - Labs CBC & Chem 7: 01/19/25 10:40 01/19/25 10:40 Labs: Abnormal Lab Results - Last 24 Hours (Table) 01/19/25 01/19/25 01/19/25 Range/Units 10:40 10:40 10:40 Neutrophils # 8.3 H (1.3-7.7) k/uL APTT 31.7 H (22.0-30.0) sec VBG pH (7.31-7.41) Glucose 114 H (74-99) mg/dL 01/19/25 Range/Units 10:41 Neutrophils # (1.3-7.7) k/uL APTT (22.0-30.0) sec VBG pH 7.42 H (7.31-7.41) Glucose (74-99) mg/dL Assessment and Plan Assessment: Acute COPD exacerbation Mild acute CHF, with low ejection fraction 25 to 30% Possible left ventricular hypertrophy, echocardiogram: Showed dilated left ventricle Hypertension, uncontrolled Nicotine dependence Plan: Continue with IV Solu-Medrol Continue with updraft Start IV Lasix 40 mg daily Pulmonary team consult Cardiology team consult Check echocardiogram reviewed Further recommendation based on the clinical course DVT prophylaxis subcutaneous heparin GI prophylaxis Pepcid Prognosis is guarded
[2025-01-20] MEDS: METOPROLOL SUCCINATE (ER) 25 MG TAB.ER.24H PO SCH (11:31)
[2025-01-20] MEDS: LOSARTAN 50 MG TAB PO SCH (11:31)
[2025-01-20] MEDS: FUROSEMIDE 10 MG/ML 4 ML VIAL IV SCH (11:32)
--- NOTE | 2025-01-20 13:10 | P.CRDCN ---
History of Present Illness Consult date: 01/20/25 Reason for Consult (text): Pulmonary edema History of present illness: This is a 49-year-old male with past medical history of asthma as a child, COPD, tobacco use and dependence. We have been asked to evaluate the patient for pulmonary edema. Patient developed shortness of breath about 1 month ago with dyspnea on exertion. Over the past couple days its progressively worsened and he went to the urgent care center. He was given a nebulizer treatment without improvement and was sent to the emergency center at [facility] for further evaluation and treatment. Patient has not seen PCP for several years. He does not check his blood pressure at home. Patient currently denies any chest pain or chest pressure. He states he still has a cough with minimal sputum production. He feels that his breathing is not improved. Patient has never had a stress test done in the past. Blood pressure 162/101, heart rate 105, pulse ox 98% on 2 L nasal cannula. Patient is status post 1 dose of IV Lasix 40 mg. Patient is an active smoker of 1 to 1-1/2 packs/day for 30 years. Patient drinks 2-3 aldoholic drinks per day. Dad had NC in early 70s. Discussed results of echocardiogram and possible underlying etiologies. Discussed recommendations for meidcal management, alcohol avoidance and smoking cessation. Plan to start medications at this time and make adjustments. Pulmonary medicine is also following the patient. -EKG: Sinus rhythm with LVH -Chest x-ray: Suspect mild to moderate central vascular congestion or edema. Correlate for fluid overload state. -Echocardiogram reveals EF of 25 to 30%, dilated LV cavity, mild LA dilatation, mild mitral regurgitation. -Laboratory studies: CBC unremarkable. Venous pH 7.42, pCO2 42 and bicarb 27. Electrolytes and renal function are normal. Troponin negative x 1. proBNP 1670, Cepheid viral panel not detected. -Home cardiac medications: None Review Of Systems: At the time of my exam: CONSTITUTIONAL: Denies fever or chills. HEENT: Denies blurred vision, vision changes, or eye pain. Denies hemoptysis CARDIOVASCULAR: Denies chest pain. Denies orthopnea. Denies PND. Denies palpitations RESPIRATORY: + shortness of breath. + wheezing GASTROINTESTINAL: Denies abdominal pain. Denies nausea or vomiting. HEMATOLOGIC: Denies bleeding disorders. GENITOURINARY: Denies any blood in urine. SKIN: Denies puritis. Denies rash. Physical examination: Gen: This is a 49-year-old male in no acute distress VS: reviewed HEENT: Head is atraumatic, normocephalic. Pupils equal, round. Sclerae is anicteric. NECK: Supple. No JVD. LUNGS: Significant bilat wheezing. No intercostal retractions. HEART: Regular rate and rhythm. No murmur. ABDOMEN: Soft No tenderness. EXTREMITIES: No pedal edema. No calf tenderness. NEUROLOGICAL: Patient is awake, alert and oriented x3. Assessment: COPD exacerbation Acute hypoxic respiratory failure Uncontrolled hypertension Acute systolic heart failure Cardiomyopathy, ischemic versus nonischemic, EF 25 to 30%, new dx Chronic tobacco use and dependence Plan: Continue patient on IV Lasix 40 mg daily Monitor AURA, daily weights, electrolytes and renal function Start patient on losartan 50 mg daily and metoprolol succinate 25 mg daily Smoking cessation. Patient will be provided the [employer] quit line information at discharge. Further recommendations to follow based upon clinical course Thank you kindly for this consultation. Nurse practitioner note has been reviewed, I agree with documented findings and plan of care. Patient was seen and examined. Past Medical History Past Medical History: Asthma History of Any Multi-Drug Resistant Organisms: None Reported Past Surgical History: Hernia Repair Past Anesthesia/Blood Transfusion Reactions: No Reported Reaction Smoking Status: Current every day smoker Medications and Allergies Home Medications Medication Instructions Recorded Confirmed Type No Known Home Medications 01/19/25 01/19/25 History Allergies Allergy/AdvReac Type Severity Reaction Status Date / Time No Known Allergies Allergy Verified 01/19/25 11:26 Physical Exam Vitals: Vital Signs Temp Pulse Pulse Resp BP BP Pulse Ox 01/20/25 08:00 98.0 F 105 H 18 162/101 98 01/20/25 05:31 96 01/20/25 05:20 92 01/20/25 04:00 98.1 F 94 18 161/86 95 01/20/25 00:00 91 18 153/81 94 L 01/19/25 20:32 98 01/19/25 20:24 96 01/19/25 20:00 98.3 F 97 18 149/86 96 01/19/25 17:42 98.8 F 93 18 172/95 94 L 01/19/25 16:33 86 01/19/25 16:19 88 01/19/25 14:28 98.0 F 98 18 166/92 93 L 01/19/25 12:52 90 20 156/108 96 01/19/25 12:49 92 01/19/25 12:39 90 01/19/25 11:47 95 28 H 155/97 95 01/19/25 10:17 28 H 01/19/25 10:14 98.5 F 100 28 H 155/103 95 01/19/25 10:12 98.1 F 94 20 159/92 95 Intake and Output 01/19/25 01/20/25 01/20/25 22:59 06:59 14:59 Other: Voiding Method Toilet Toilet Urinal Urinal # Voids 2 Weight 71.1 kg Results 01/19/25 10:40 01/19/25 10:40 Cardiac Enzymes 01/19/25 01/19/25 Range/Units 10:40 10:40 AST 25 (17-59) U/L Troponin I 0.016 (0.000-0.034) ng/mL Coagulation 01/19/25 Range/Units 10:40 PT 11.4 (10.0-12.5) sec APTT 31.7 H (22.0-30.0) sec CBC 01/19/25 Range/Units 10:40 WBC 10.6 (3.8-10.6) k/uL RBC 5.36 (4.30-5.90) m/uL Hgb 14.8 (13.0-17.5) gm/dL Hct 46.1 (39.0-53.0) % Plt Count 227 (150-450) k/uL Comprehensive Metabolic Panel 01/19/25 Range/Units 10:40 Sodium 138 (137-145) mmol/L Potassium 3.7 (3.5-5.1) mmol/L Chloride 102 (98-107) mmol/L Carbon Dioxide 25 (22-30) mmol/L BUN 18 (9-20) mg/dL Creatinine 0.83 (0.66-1.25) mg/dL Glucose 114 H (74-99) mg/dL Calcium 9.5 (8.4-10.2) mg/dL AST 25 (17-59) U/L ALT 20 (4-49) U/L Alkaline Phosphatase 66 (38-126) U/L Total Protein 6.9 (6.3-8.2) g/dL Albumin 4.3 (3.5-5.0) g/dL Current Medications Generic Name Dose Route Start Last Admin Trade Name Freq PRN Reason Stop Dose Admin Albuterol/Ipratropium 3 ml 01/20/25 08:00 Ipratropium-Albuterol 3 Ml Neb INHALATION RT-QID EMILY Albuterol/Ipratropium 3 ml 01/19/25 20:25 01/20/25 05:20 Ipratropium-Albuterol 3 Ml Neb INHALATION 3 ml RT-Q2H PRN Administration Shortness Of Breath Or Wheezing Alprazolam 0.5 mg 01/19/25 14:01 Alprazolam 0.5 Mg Tab PO BID PRN Anxiety Budesonide/Formoterol Fumarate 2 puff 01/20/25 08:00 Symbicort 160-4.5 Mcg Inhaler INHALATION RT-BID EMILY Famotidine 20 mg 01/19/25 21:00 01/20/25 08:11 Famotidine 20 Mg/2 Ml Vial IV 20 mg Q12HR EMILY Administration Heparin Sodium (Porcine) 5,000 unit 01/19/25 21:00 01/20/25 08:11 Heparin Sodium,Porcine 5,000 Unit/Ml 1 Ml Vial SQ 5,000 unit Q12HR EMILY Administration Ketorolac Tromethamine 15 mg 01/19/25 13:10 Ketorolac 15 Mg/Ml 1 Ml Vial IVP 01/22/25 13:11 Q6HR PRN Moderate Pain (Scale 4 to 6) Methylprednisolone Sodium Succinate 60 mg 01/19/25 18:00 01/20/25 04:59 Methylprednisolone Sod Succi 125 Mg/2 Ml Vial IV 60 mg Q6HR EMILY Administration Naloxone HCl 0.2 mg 01/19/25 13:10 Naloxone 0.4 Mg/Ml 1 Ml Vial IV Q2M PRN Opioid Reversal Nicotine 1 patch 01/19/25 18:45 01/20/25 08:09 Nicotine 21mg/24hr Patch TRANSDERM Not Given DAILY EMILY Ondansetron HCl 4 mg 01/19/25 13:10 Ondansetron 4 Mg/2 Ml Vial IVP Q8HR PRN Nausea And Vomiting Intake and Output 01/19/25 01/20/25 01/20/25 22:59 06:59 14:59 Other: Voiding Method Toilet Toilet Urinal Urinal # Voids 2 Weight 71.1 kg 01/19/25 10:40 01/19/25 10:40
[2025-01-21 07:15] LABS: African American GFR (CKD) >90 (>60 ml/min/1.73 sqM); Anion Gap 10 mmol/L; Blood Urea Nitrogen 35 mg/dL (9-20); Calcium 9.4 mg/dL (8.4-10.2); Carbon Dioxide 25 mmol/L (22-30); Chloride 102 mmol/L (98-107); Glucose 110 mg/dL (74-99); Non-African American GFR(CKD) 86 (>60 ml/min/1.73 sqM); Potassium 4.5 mmol/L (3.5-5.1); Sodium 137 mmol/L (137-145)
--- NOTE | 2025-01-21 10:05 | P.PN ---
Subjective This is a pleasant 49 years old male with no significant past medical history Presents because of dyspnea for 4 to 5 days associated with cough and white phlegm No chest pain Patient smokes about 1 pack/day and he was counseled to quit and he agrees to the nicotine patch patient denies GI/ symptoms Has little headache but no dizziness weakness numbness No significant leg swelling He is not using any home oxygen and currently he is on 2 L oxygen via nasal cannula with oxygen saturation 94% Patient is hemodynamically stable though, afebrile, blood pressure slightly elevated CBC, BMP, liver enzymes INR and troponin were negative Mild virus Influenza A and type B, RSV, SARS (coronavirus) are undetected Chest x-ray read by radiologist as mild to moderate CHF, when I reviewed the chest x-ray myself looks more like COPD changes proBNP is mildly elevated 1670 EKG showing sinus rhythm at 95 with LVH criteria and some mild ST depression in the lateral lead related to her hypertrophy changes 01/20 Patient feels the same still short of breath He still has extensive bilateral wheezing. Also with careful examination he has basal crepitation No leg edema. No other new complaints. Patient asking if he is going to stay 1 more night. Echocardiogram showed low ejection fraction 25 to 30% with dilated left ventricle. Patient currently remains on IV Solu-Medrol 60 mg. He received 1 time dose of IV Lasix, will going to place him on 40 mg of IV Lasix daily. Cardiology will evaluate the patient 01/21 Patient feels improved, more awake and energetic. He reports improvement in his breathing. Patient still has significantly wheezing although it is improving as well He keeps on IV Solu-Medrol 60 mg and IV Lasix 40 mg daily. Patient also currently getting metoprolol and losartan. He is on room air. No chest pain. No other new complaint. Patient understands he needs to stay in the hospital although he is eager to go home. Objective - Vital Signs Vital signs: Vital Signs Temp 98.4 F 01/21/25 03:59 Pulse 88 01/21/25 08:35 Resp 18 01/21/25 03:59 BP 154/84 01/21/25 03:59 Pulse Ox 94 L 01/21/25 08:24 FiO2 Intake & Output 01/20/25 01/21/25 01/21/25 18:59 06:59 18:59 Intake Total 118 Balance 118 Weight 71.1 kg Intake: Oral 118 Other: Voiding Method Toilet Urinal # Voids 1 1 - Exam GENERAL: The patient is alert and oriented x3, not in any acute distress. Well developed, well nourished. HEENT: Pupils are round and equally reacting to light. EOMI. No scleral icterus. No conjunctival pallor. Normocephalic, atraumatic. No pharyngeal erythema. No t hyromegaly. CARDIOVASCULAR: S1 and S2 present. No murmurs, rubs, or gallops. PULMONARY: Chest is clear to auscultation, n bilateral extensive wheezing , mild bilateral basal crackles. ABDOMEN: Soft, nontender, nondistended, normoactive bowel sounds. No palpable organomegaly. MUSCULOSKELETAL: No joint swelling or deformity. EXTREMITIES: No cyanosis, clubbing, or pedal edema. NEUROLOGICAL: Gross neurological examination did not reveal any focal deficits. SKIN: No rashes. no petechiae. - Labs CBC & Chem 7: 01/19/25 10:40 01/21/25 06:19 Labs: Abnormal Lab Results - Last 24 Hours (Table) 01/21/25 Range/Units 06:19 BUN 35 H (9-20) mg/dL Glucose 110 H (74-99) mg/dL Assessment and Plan Assessment: Acute COPD exacerbation Mild acute CHF, with low ejection fraction 25 to 30% Possible left ventricular hypertrophy, echocardiogram: Showed dilated left ventricle Hypertension, uncontrolled Nicotine dependence Plan: Continue with IV Solu-Medrol Continue with updraft Continue with IV Lasix 40 mg daily Continue with metoprolol and losartan Pulmonary team consult Cardiology team consult Check echocardiogram reviewed Further recommendation based on the clinical course DVT prophylaxis subcutaneous heparin GI prophylaxis Pepcid Prognosis is guarded
[2025-01-21] MEDS: SPIRONOLACTONE 25 MG TAB PO SCH (12:04)
[2025-01-21] MEDS: DAPAGLIFLOZIN PROPANEDIOL 10 MG TABLET PO SCH (12:04)
--- NOTE | 2025-01-21 14:23 | P.PN ---
Subjective Progress Note Date: 01/21/25 Reason for Consult (text): Pulmonary edema History of present illness: This is a 49-year-old male with past medical history of asthma as a child, COPD, tobacco use and dependence. We have been asked to evaluate the patient for pulmonary edema. Patient developed shortness of breath about 1 month ago with dyspnea on exertion. Over the past couple days its progressively worsened and he went to the urgent care center. He was given a nebulizer treatment without improvement and was sent to the emergency center at [facility] for further evaluation and treatment. Patient has not seen PCP for several years. He does not check his blood pressure at home. Patient currently denies any chest pain or chest pressure. He states he still has a cough with minimal sputum production. He feels that his breathing is not improved. Patient has never had a stress test done in the past. Blood pressure 162/101, heart rate 105, pulse ox 98% on 2 L nasal cannula. Patient is status post 1 dose of IV Lasix 40 mg. Patient is an active smoker of 1 to 1-1/2 packs/day for 30 years. Patient drinks 2-3 aldoholic drinks per day. Dad had IN in early 70s. Discussed results of echocardiogram and possible underlying etiologies. Discussed recomme ndations for meidcal management, alcohol avoidance and smoking cessation. Plan to start medications at this time and make adjustments. Pulmonary medicine is also following the patient. -EKG: Sinus rhythm with LVH -Chest x-ray: Suspect mild to moderate central vascular congestion or edema. Correlate for fluid overload state. -Echocardiogram reveals EF of 25 to 30%, dilated LV cavity, mild LA dilatation, mild mitral regurgitation. -Laboratory studies: CBC unremarkable. Venous pH 7.42, pCO2 42 and bicarb 27. Electrolytes and renal function are normal. Troponin negative x 1. proBNP 1670, Cepheid viral panel not detected. -Home cardiac medications: None 01/21 Patient is seen and examined. He denies chest pain chest pressure or tightness. He states that shortness of breath is a little bit better. He has been continued on IV Lasix 40 mg daily. Blood pressure 169/88, heart rate 78, pulse ox 97% on room air. Repeat blood work reveals sodium 137, potassium 4.5, BUN 35 and creatinine 1.04. Physical examination: Gen: This is a 49-year-old male in no acute distress VS: reviewed HEENT: Head is atraumatic, normocephalic. Pupils equal, round. Sclerae is anicteric. NECK: Supple. No JVD. LUNGS: Significant bilat wheezing. No intercostal retractions. HEART: Regular rate and rhythm. No murmur. ABDOMEN: Soft No tenderness. EXTREMITIES: No pedal edema. No calf tenderness. NEUROLOGICAL: Patient is awake, alert and oriented x3. Assessment: COPD exacerbation Acute hypoxic respiratory failure Uncontrolled hypertension Acute systolic heart failure Cardiomyopathy, ischemic versus nonischemic, EF 25 to 30%, new dx Chronic tobacco use and dependence Plan: Continue patient on IV Lasix 40 mg daily Monitor AURA, daily weights, electrolytes and renal function Continue patient on losartan 50 mg daily and metoprolol succinate 25 mg daily And Farxiga 10 mg daily and Aldactone 25 mg daily Smoking cessation. Patient will be provided the [employer] quit line information at discharge. Further recommendations to follow based upon clinical course Nurse practitioner note has been reviewed, I agree with documented findings and plan of care. Patient was seen and examined. Objective - Vital Signs Vital signs: Vital Signs Temp 98.4 F 01/21/25 03:59 Pulse 88 01/21/25 08:35 Resp 18 01/21/25 03:59 BP 154/84 01/21/25 03:59 Pulse Ox 94 L 01/21/25 08:24 FiO2 Intake & Output 01/20/25 01/21/25 01/21/25 18:59 06:59 18:59 Intake Total 118 Balance 118 Weight 71.1 kg Intake: Oral 118 Other: Voiding Method Toilet Urinal # Voids 1 1 - Labs CBC & Chem 7: 01/19/25 10:40 01/21/25 06:19 Labs: Abnormal Lab Results - Last 24 Hours (Table) 01/21/25 Range/Units 06:19 BUN 35 H (9-20) mg/dL Glucose 110 H (74-99) mg/dL
--- NOTE | 2025-01-21 16:33 | P.PN ---
Subjective Progress Note Date: 01/21/25 Principal diagnosis: Acute exacerbation of COPD with acute hypoxic respiratory failure Patient is a 49-year-old male with past medical history significant for asthma/COPD. He is a tobacco current smoker and carries a significant smoking history of 1 to 1-1/2 packs/day for over 30 years. Does have history of childhood asthma. Patient states over the last month he is been more short of breath with intermittent and wheezing on exertion. Over the last 2 to 3 days this is progressively worsened. Did go to urgent care center and was given DuoNeb treatments without much relief. He was directed to emergency department. Workup in the emergency department includes a chest x-ray which does not show any acute cardiopulmonary process. No focal infiltrates or evidence of pne umonia. No pleural effusions, pneumothoraces. CBC unremarkable for leukocytosis. Hemoglobin stable at 14.8 g/dL. Platelets 227. VBG showing a pH of 7.42 and a pCO2 of 42. CMP also unremarkable, electrolytes WDL, creatinine 0.83, glucose 114, LFTs not elevated. Troponin 0.016, NT proBNP 1670. EKG: Sinus rhythm, rate 95 bpm, nonspecific ST/T wave changes. Viral screen negative for influenza, RSV, COVID. Patient currently being evaluated on the cardiac stepdown unit. Currently on 2 L/min nasal cannula. Has diffuse expiratory wheezing. Endorses severe shortness of breath, chest tightness, nonproductive coughing which has worsened over the last 2 to 3 days. Denies any sick contacts. Denies rhinorrhea, sore throat, sinus congestion. Denies any fever/chills, sputum production, hemoptysis, chest pain. Denies any lower extremity swelling, orthopnea, PND. He has been started on a combination of bronchodilators and IV Solu-Medrol. Most recent vital signs: Temperature 98.3 F, heart rate 98 bpm, blood pressure 149/86 mmHg, nontachypneic, SpO2 reading 96% on 2 L/min nasal cannula. Patient was evaluated today on 01/20/2026, patient is slightly better, continues to have some cough and wheezing, not quite ready for discharge. We are seeing the patient for acute exacerbation of COPD, with acute hypoxic respiratory failure and ongoing tobacco dependence for the last 30 years, patient had negative viral screening for influenza A B RSV and COVID. Patient is on bronchodilators and on steroids, some improvement but continues to cough and wheeze. Labs were reviewed, chest x-ray on admission was reviewed, did show some prominence of the pulmonary vasculature, but no clear-cut evidence of pneumonia. Patient did have history of cardiomyopathy, and LV dysfunction with ejection fraction of 25 to 30% and that is being addressed by cardiology on the case. Objective - Vital Signs Vital signs: Vital Signs Temp 97.5 F L 01/21/25 12:00 Pulse 91 01/21/25 15:47 Resp 18 01/21/25 12:00 BP 162/85 01/21/25 12:00 Pulse Ox 97 01/21/25 12:00 FiO2 Intake & Output 01/20/25 01/21/25 01/21/25 18:59 06:59 18:59 Intake Total 340 Balance 340 Weight 71.1 kg Intake: Oral 340 Other: Voiding Method Toilet Toilet Urinal Urinal # Voids 1 1 2 - Exam GENERAL EXAM: Alert, 49-year-old male, sitting erect in bed, fairly comfortable in no apparent distress. HEAD: Normocephalic and atraumatic EYES: Normal reaction of pupils, equal size. NOSE: Clear with pink turbinates. THROAT: No erythema or exudates. NECK: No masses, no JVD. CHEST: No chest wall deformity. LUNGS: Wheezing remains bilaterally CVS: S1 and S2 normal with no audible murmur, regular rhythm. No extra heart sounds ABDOMEN: No hepatosplenomegaly, active bowel sounds, no guarding or rigidity. SKIN: No rashes CENTRAL NERVOUS SYSTEM: Alert and oriented x 3 no gross focal deficit EXTREMITIES: No clubbing edema or cyanosis - Labs CBC & Chem 7: 01/19/25 10:40 01/21/25 06:19 Labs: Abnormal Lab Results - Last 24 Hours (Table) 01/21/25 Range/Units 06:19 BUN 35 H (9-20) mg/dL Glucose 110 H (74-99) mg/dL Assessment and Plan Assessment: Impression: Acute hypoxic respiratory failure Acute COPD exacerbation Cardiomyopathy and LV dysfunction, being addressed by cardiology Benign essential hypertension Tobacco dependence syndrome Recommendation: Continue present supportive care measures Continue bronchodilators and steroids Continue Lasix as ordered by admitting physician Continue DVT prophylaxis Continue fark CIGA Continue Symbicort Continue Aldactone as ordered by cardiology Not ready for discharge planning patient has obviously many complex issues Will continue to follow Time with Patient: Less than 30
--- NOTE | 2025-01-22 12:52 | P.PN ---
Subjective This is a pleasant 49 years old male with no significant past medical history Presents because of dyspnea for 4 to 5 days associated with cough and white phlegm No chest pain Patient smokes about 1 pack/day and he was counseled to quit and he agrees to the nicotine patch patient denies GI/ symptoms Has little headache but no dizziness weakness numbness No significant leg swelling He is not using any home oxygen and currently he is on 2 L oxygen via nasal cannula with oxygen saturation 94% Patient is hemodynamically stable though, afebrile, blood pressure slightly elevated CBC, BMP, liver enzymes INR and troponin were negative Mild virus Influenza A and type B, RSV, SARS (coronavirus) are undetected Chest x-ray read by radiologist as mild to moderate CHF, when I reviewed the chest x-ray myself looks more like COPD changes proBNP is mildly elevated 1670 EKG showing sinus rhythm at 95 with LVH criteria and some mild ST depression in the lateral lead related to her hypertrophy changes 01/20 Patient feels the same still short of breath He still has extensive bilateral wheezing. Also with careful examination he has basal crepitation No leg edema. No other new complaints. Patient asking if he is going to stay 1 more night. Echocardiogram showed low ejection fraction 25 to 30% with dilated left ventricle. Patient currently remains on IV Solu-Medrol 60 mg. He received 1 time dose of IV Lasix, will going to place him on 40 mg of IV Lasix daily. Cardiology will evaluate the patient 01/21 Patient feels improved, more awake and energetic. He reports improvement in his breathing. Patient still has significantly wheezing although it is improving as well He keeps on IV Solu-Medrol 60 mg and IV Lasix 40 mg daily. Patient also currently getting metoprolol and losartan. He is on room air. No chest pain. No other new complaint. Patient understands he needs to stay in the hospital although he is eager to go home. 01/22 Patient still has extensive wheezing and shortness of breath although he feels improvement. He is not ready for discharge. No other new complaint. He has good appetite. Vitals controlled. BMP and creatinine are within the reference range. He remains on IV Solu-Medrol and IV Lasix 40 mg daily He continued on other cardiac medication. Objective - Vital Signs Vital signs: Vital Signs Temp 97.9 F 01/22/25 08:23 Pulse 80 01/22/25 12:12 Resp 18 02/27/25 11:33 BP 162/91 01/22/25 11:33 Pulse Ox 92 L 01/22/25 11:33 FiO2 Intake & Output 01/21/25 01/22/25 01/22/25 18:59 06:59 18:59 Intake Total 340 160 Balance 340 160 Weight 71.3 kg Intake: IV 10 Invasive Line 1 10 Oral 340 150 Other: Voiding Method Toilet Toilet Toilet Urinal Urinal Urinal # Voids 2 1 - Exam GENERAL: The patient is alert and oriented x3, not in any acute distress. Well developed, well nourished. HEENT: Pupils are round and equally reacting to light. EOMI. No scleral icterus. No conjunctival pallor. Normocephalic, atraumatic. No pharyngeal erythema. No thyromegaly. CARDIOVASCULAR: S1 and S2 present. No murmurs, rubs, or gallops. PULMONARY: Chest is clear to auscultation, n bilateral extensive wheezing , mild bilateral basal crackles. ABDOMEN: Soft, nontender, nondistended, normoactive bowel sounds. No palpable organomegaly. MUSCULOSKELETAL: No joint swelling or deformity. EXTREMITIES: No cyanosis, clubbing, or pedal edema. NEUROLOGICAL: Gross neurological examination did not reveal any focal deficits. SKIN: No rashes. no petechiae. - Labs CBC & Chem 7: 01/19/25 10:40 01/21/25 06:19 Assessment and Plan Assessment: Acute COPD exacerbation Mild acute CHF, with low ejection fraction 25 to 30% Possible left ventricular hypertrophy, echocardiogram: Showed dilated left ventricle Hypertension, uncontrolled Nicotine dependence Plan: Continue with IV Solu-Medrol Continue with updraft Continue with IV Lasix 40 mg daily Continue with metoprolol and losartan Pulmonary team consult Cardiology team consult Check echocardiogram reviewed Further recommendation based on the clinical course DVT prophylaxis subcutaneous heparin GI prophylaxis Pepcid Prognosis is guarded
--- NOTE | 2025-01-22 13:13 | P.PN ---
Subjective Progress Note Date: 01/22/25 Reason for Consult (text): Pulmonary edema History of present illness: This is a 49-year-old male with past medical history of asthma as a child, COPD, tobacco use and dependence. We have been asked to evaluate the patient for pulmonary edema. Patient developed shortness of breath about 1 month ago with dyspnea on exertion. Over the past couple days its progressively worsened and he went to the urgent care center. He was given a nebulizer treatment without improvement and was sent to the emergency center at [facility] for further evaluation and treatment. Patient has not seen PCP for several years. He does not check his blood pressure at home. Patient currently denies any chest pain or chest pressure. He states he still has a cough with minimal sputum production. He feels that his breathing is not improved. Patient has never had a stress test done in the past. Blood pressure 162/101, heart rate 105, pulse ox 98% on 2 L nasal cannula. Patient is status post 1 dose of IV Lasix 40 mg. Patient is an active smoker of 1 to 1-1/2 packs/day for 30 years. Patient drinks 2-3 aldoholic drinks per day. Dad had [place] in early 70s. Discussed results of echocardiogram and possible underlying etiologies. Discussed recomme ndations for meidcal management, alcohol avoidance and smoking cessation. Plan to start medications at this time and make adjustments. Pulmonary medicine is also following the patient. -EKG: Sinus rhythm with LVH -Chest x-ray: Suspect mild to moderate central vascular congestion or edema. Correlate for fluid overload state. -Echocardiogram reveals EF of 25 to 30%, dilated LV cavity, mild LA dilatation, mild mitral regurgitation. -Laboratory studies: CBC unremarkable. Venous pH 7.42, pCO2 42 and bicarb 27. Electrolytes and renal function are normal. Troponin negative x 1. proBNP 1670, Cepheid viral panel not detected. -Home cardiac medications: None 01/21 Patient is seen and examined. He denies chest pain chest pressure or tightness. He states that shortness of breath is a little bit better. He has been continued on IV Lasix 40 mg daily. Blood pressure 169/88, heart rate 78, pulse ox 97% on room air. Repeat blood work reveals sodium 137, potassium 4.5, BUN 35 and creatinine 1.04. 01/22 Patient is seen and examined. Blood pressure 162/91, heart rate 68, pulse ox 92% on room air. No repeat blood work today. Patient has been maintained on IV Lasix 40 mg daily. Weights and AURA do not appear to be accurate. Yesterday, Farxiga and Aldactone were added. Physical examination: Gen: This is a 49-year-old male in no acute distress VS: reviewed HEENT: Head is atraumatic, normocephalic. Pupils equal, round. Sclerae is anicteric. NECK: Supple. No JVD. LUNGS: Significant bilat wheezing. No intercostal retractions. HEART: Regular rate and rhythm. No murmur. ABDOMEN: Soft No tenderness. EXTREMITIES: No pedal edema. No calf tenderness. NEUROLOGICAL: Patient is awake, alert and oriented x3. Assessment: COPD exacerbation Acute hypoxic respiratory failure Uncontrolled hypertension Acute systolic heart failure Cardiomyopathy, ischemic versus nonischemic, EF 25 to 30%, new dx Chronic tobacco use and dependence Plan: Continue patient on IV Lasix 40 mg daily Monitor AURA, daily weights, electrolytes and renal function Continue patient on losartan 50 mg daily and metoprolol succinate 25 mg daily Continue the addition of Farxiga 10 mg daily and Aldactone 25 mg daily Smoking cessation. Patient will be provided the [employer] quit line information at discharge. Further recommendations to follow based upon clinical course Nurse practitioner note has been reviewed, I agree with documented findings and plan of care. Patient was seen and examined. Objective - Vital Signs Vital signs: Vital Signs Temp 97.9 F 01/22/25 08:23 Pulse 80 01/22/25 12:12 Resp 18 01/22/25 11:33 BP 162/91 01/22/25 11:33 Pulse Ox 92 L 01/22/25 11:33 FiO2 Intake & Output 01/21/25 01/22/25 01/22/25 18:59 06:59 18:59 Intake Total 340 160 Balance 340 160 Weight 71.3 kg Intake: IV 10 Invasive Line 1 10 Oral 340 150 Other: Voiding Method Toilet Toilet Toilet Urinal Urinal Urinal # Voids 2 1 - Labs CBC & Chem 7: 01/19/25 10:40 01/21/25 06:19
--- NOTE | 2025-01-22 14:03 | P.PN ---
Subjective Progress Note Date: 01/22/25 Principal diagnosis: Acute exacerbation of COPD with acute hypoxic respiratory failure Patient is a 49-year-old male with past medical history significant for asthma/COPD. He is a tobacco current smoker and carries a significant smoking history of 1 to 1-1/2 packs/day for over 30 years. Does have history of childhood asthma. Patient states over the last month he is been more short of breath with intermittent and wheezing on exertion. Over the last 2 to 3 days this is progressively worsened. Did go to urgent care center and was given DuoNeb treatments without much relief. He was directed to emergency department. Workup in the emergency department includes a chest x-ray which does not show any acute cardiopulmonary process. No focal infiltrates or evidence of pne umonia. No pleural effusions, pneumothoraces. CBC unremarkable for leukocytosis. Hemoglobin stable at 14.8 g/dL. Platelets 227. VBG showing a pH of 7.42 and a pCO2 of 42. CMP also unremarkable, electrolytes WDL, creatinine 0.83, glucose 114, LFTs not elevated. Troponin 0.016, NT proBNP 1670. EKG: Sinus rhythm, rate 95 bpm, nonspecific ST/T wave changes. Viral screen negative for influenza, RSV, COVID. Patient currently being evaluated on the cardiac stepdown unit. Currently on 2 L/min nasal cannula. Has diffuse expiratory wheezing. Endorses severe shortness of breath, chest tightness, nonproductive coughing which has worsened over the last 2 to 3 days. Denies any sick contacts. Denies rhinorrhea, sore throat, sinus congestion. Denies any fever/chills, sputum production, hemoptysis, chest pain. Denies any lower extremity swelling, orthopnea, PND. He has been started on a combination of bronchodilators and IV Solu-Medrol. Most recent vital signs: Temperature 98.3 F, heart rate 98 bpm, blood pressure 149/86 mmHg, nontachypneic, SpO2 reading 96% on 2 L/min nasal cannula. Patient was evaluated today on 01/21/2025, patient is slightly better, continues to have some cough and wheezing, not quite ready for discharge. We are seeing the patient for acute exacerbation of COPD, with acute hypoxic respiratory failure and ongoing tobacco dependence for the last 30 years, patient had negative viral screening for influenza A B RSV and COVID. Patient is on bronchodilators and on steroids, some improvement but continues to cough and wheeze. Labs were reviewed, chest x-ray on admission was reviewed, did show some prominence of the pulmonary vasculature, but no clear-cut evidence of pneumonia. Patient did have history of cardiomyopathy, and LV dysfunction with ejection fraction of 25 to 30% and that is being addressed by cardiology on the case. Patient was seen today on 01/22/25, patient continues to have cough and wheeze, some shortness of breath, no chest pain, no fever, no chills, no hemoptysis. Chest x-ray on admission showed minimal pulmonary vascular congestion. Patient was found to have cardiomyopathy and LV dysfunction cardiac workup is pending. Awaiting improvement in his overall pulmonary status before any cardiac intervention. In the meantime, patient remains on Lasix 40 mg daily he is on bronchodilators and steroids, patient was also placed on fark CIGA and Aldactone. Very minimal improvement if any in the last 2 days. Pulmonary grimm patient is on methylprednisolone, DuoNeb, and albuterol side. Cardiac grimm patient is on furosemide, Aldactone, farxiga and metoprolol. Basic metabolic profile today is normal patient had negative screening for influenza RSV and COVID Objective - Vital Signs Vital signs: Vital Signs Temp 97.9 F 01/22/25 08:23 Pulse 68 01/22/25 13:23 Resp 18 01/22/25 13:23 BP 162/91 01/22/25 11:33 Pulse Ox 92 L 01/22/25 11:33 FiO2 Intake & Output 01/21/25 01/22/25 01/22/25 18:59 06:59 18:59 Intake Total 340 170 Balance 340 170 Weight 71.3 kg Intake: IV 20 Invasive Line 1 20 Oral 340 150 Other: Voiding Method Toilet Toilet Toilet Urinal Urinal Urinal # Voids 2 1 - Exam GENERAL EXAM: Alert, 49-year-old male, sitting erect in bed, fairly comfortable in no apparent distress. HEAD: Normocephalic and atraumatic EYES: Normal reaction of pupils, equal size. NOSE: Clear with pink turbinates. THROAT: No erythema or exudates. NECK: No masses, no JVD. CHEST: No chest wall deformity. LUNGS: Crackles rhonchi and wheezes noted bilaterally CVS: S1 and S2 normal with no audible murmur, regular rhythm. No extra heart sounds ABDOMEN: No hepatosplenomegaly, active bowel sounds, no guarding or rigidity. SKIN: No rashes CENTRAL NERVOUS SYSTEM: Alert and oriented x 3 no gross focal deficit EXTREMITIES: No clubbing edema or cyanosis - Labs CBC & Chem 7: 01/19/25 10:40 01/21/25 06:19 Assessment and Plan Assessment: Impression: Acute hypoxic respiratory failure Acute COPD exacerbation Cardiomyopathy and LV dysfunction, being addressed by cardiology Mild systolic congestive heart failure Benign essential hypertension Tobacco dependence syndrome Recommendation: Continue present supportive care measures Continue bronchodilators and steroids Continue Lasix and Aldactone Continue DVT prophylaxis Continue farxiga Continue Symbicort Not ready for discharge His pulmonary status and cardiac status are concerning. Will continue to follow Time with Patient: Less than 30
[2025-01-22 14:35] LABS: African American GFR (CKD) >90 (>60 ml/min/1.73 sqM); Anion Gap 15 mmol/L; Blood Urea Nitrogen 38 mg/dL (9-20); Calcium 9.7 mg/dL (8.4-10.2); Carbon Dioxide 22 mmol/L (22-30); Chloride 97 mmol/L (98-107); Glucose 169 mg/dL (74-99); Non-African American GFR(CKD) 89 (>60 ml/min/1.73 sqM); Potassium 4.3 mmol/L (3.5-5.1); Sodium 134 mmol/L (137-145)
[2025-01-22] MEDS: LOSARTAN 50 MG TAB PO STA (15:17)
[2025-01-22] MEDS: SPIRONOLACTONE 25 MG TAB PO STA (15:17)
[2025-01-23 07:57] LABS: African American GFR (CKD) >90 (>60 ml/min/1.73 sqM); Anion Gap 9 mmol/L; Blood Urea Nitrogen 34 mg/dL (9-20); Calcium 9.1 mg/dL (8.4-10.2); Carbon Dioxide 25 mmol/L (22-30); Chloride 101 mmol/L (98-107); Glucose 116 mg/dL (74-99); Non-African American GFR(CKD) >90 (>60 ml/min/1.73 sqM); Potassium 4.8 mmol/L (3.5-5.1); Sodium 135 mmol/L (137-145)
[2025-01-23] MEDS: SPIRONOLACTONE 25 MG TAB PO SCH (08:20)
[2025-01-23] MEDS: LOSARTAN 50 MG TAB PO SCH (08:20)
--- NOTE | 2025-01-23 08:59 | P.PN ---
Subjective This is a pleasant 49 years old male with no significant past medical history Presents because of dyspnea for 4 to 5 days associated with cough and white phlegm No chest pain Patient smokes about 1 pack/day and he was counseled to quit and he agrees to the nicotine patch patient denies GI/ symptoms Has little headache but no dizziness weakness numbness No significant leg swelling He is not using any home oxygen and currently he is on 2 L oxygen via nasal cannula with oxygen saturation 94% Patient is hemodynamically stable though, afebrile, blood pressure slightly elevated CBC, BMP, liver enzymes INR and troponin were negative Mild virus Influenza A and type B, RSV, SARS (coronavirus) are undetected Chest x-ray read by radiologist as mild to moderate CHF, when I reviewed the chest x-ray myself looks more like COPD changes proBNP is mildly elevated 1670 EKG showing sinus rhythm at 95 with LVH criteria and some mild ST depression in the lateral lead related to her hypertrophy changes 01/20 Patient feels the same still short of breath He still has extensive bilateral wheezing. Also with careful examination he has basal crepitation No leg edema. No other new complaints. Patient asking if he is going to stay 1 more night. Echocardiogram showed low ejection fraction 25 to 30% with dilated left ventricle. Patient currently remains on IV Solu-Medrol 60 mg. He received 1 time dose of IV Lasix, will going to place him on 40 mg of IV Lasix daily. Cardiology will evaluate the patient 01/21 Patient feels improved, more awake and energetic. He reports improvement in his breathing. Patient still has significantly wheezing although it is improving as well He keeps on IV Solu-Medrol 60 mg and IV Lasix 40 mg daily. Patient also currently getting metoprolol and losartan. He is on room air. No chest pain. No other new complaint. Patient understands he needs to stay in the hospital although he is eager to go home. 01/22 Patient still has extensive wheezing and shortness of breath although he feels improvement. He is not ready for discharge. No other new complaint. He has good appetite. Vitals controlled. BMP and creatinine are within the reference range. He remains on IV Solu-Medrol and IV Lasix 40 mg daily He continued on other cardiac medication. 01/23 Patient continued to improve slowly and gradually He has mild wheezing and prolonged expiration on auscultation. No chest pain no other new complaints. Patient rika on IV Solu-Medrol and IV Lasix daily as well as other cardiac medication like metoprolol and lisinopril. Objective - Vital Signs Vital signs: Vital Signs Temp 97.5 F L 01/23/25 08:14 Pulse 79 01/23/25 08:48 Resp 18 01/23/25 08:29 BP 172/88 01/23/25 08:14 Pulse Ox 93 L 01/23/25 08:14 FiO2 Intake & Output 01/22/25 01/23/25 01/23/25 18:59 06:59 18:59 Intake Total 1040 20 550 Output Total 2049 650 900 Balance -1010 -630 -350 Weight 71.2 kg Intake: IV 20 20 10 Invasive Line 1 20 20 10 Oral 1020 540 Output: Urine 2049 650 900 Other: Voiding Method Toilet Toilet Toilet Urinal Urinal Urinal # Voids 1 - Exam GENERAL: The patient is alert and oriented x3, not in any acute distress. Well developed, well nourished. HEENT: Pupils are round and equally reacting to light. EOMI. No scleral icterus. No conjunctival pallor. Normocephalic, atraumatic. No pharyngeal erythema. No thyromegaly. CARDIOVASCULAR: S1 and S2 present. No murmurs, rubs, or gallops. PULMONARY: Chest is clear to auscultation, n bilateral extensive wheezing , mild bilateral basal crackles. ABDOMEN: Soft, nontender, nondistended, normoactive bowel sounds. No palpable organomegaly. MUSCULOSKELETAL: No joint swelling or deformity. EXTREMITIES: No cyanosis, clubbing, or pedal edema. NEUROLOGICAL: Gross neurological examination did not reveal any focal deficits. SKIN: No rashes. no petechiae. - Labs CBC & Chem 7: 01/19/25 10:40 01/23/25 06:41 Labs: Abnormal Lab Results - Last 24 Hours (Table) 01/22/25 01/23/25 Range/Units 13:49 06:41 Sodium 134 L 135 L (137-145) mmol/L Chloride 97 L (98-107) mmol/L BUN 38 H 34 H (9-20) mg/dL Glucose 169 H 116 H (74-99) mg/dL Assessment and Plan Assessment: Acute COPD exacerbation Mild acute CHF, with low ejection fraction 25 to 30% Possible left ventricular hypertrophy, echocardiogram: Showed dilated left ventricle Hypertension, uncontrolled Nicotine dependence Plan: Continue with IV Solu-Medrol Continue with updraft Continue with IV Lasix 40 mg daily Continue with metoprolol and losartan Pulmonary team consult Cardiology team consult Check echocardiogram reviewed Further recommendation based on the clinical course DVT prophylaxis subcutaneous heparin GI prophylaxis Pepcid Prognosis is guarded
--- NOTE | 2025-01-23 12:33 | XR ---
EXAMINATION TYPE: XR chest 1V portable DATE OF EXAM: 01/23/2025 CLINICAL HISTORY: CHF. TECHNIQUE: 2 frontal views of the chest are obtained. COMPARISON: Chest x-ray from 4 days earlier FINDINGS: No new peripheral focal airspace opacity, pleural effusion, or pneumothorax is seen. The c ardiac silhouette size remains within normal limits. The osseous structures are intact. IMPRESSION: No acute process currently. [facility], , 01/23/2025 12:31 PM
--- NOTE | 2025-01-23 14:13 | P.PN ---
Subjective Progress Note Date: 01/23/25 Reason for Consult (text): Pulmonary edema History of present illness: This is a 49-year-old male with past medical history of asthma as a child, COPD, tobacco use and dependence. We have been asked to evaluate the patient for pulmonary edema. Patient developed shortness of breath about 1 month ago with dyspnea on exertion. Over the past couple days its progressively worsened and he went to the urgent care center. He was given a nebulizer treatment without improvement and was sent to the emergency center at [facility] for further evaluation and treatment. Patient has not seen PCP for several years. He does not check his blood pressure at home. Patient currently denies any chest pain or chest pressure. He states he still has a cough with minimal sputum production. He feels that his breathing is not improved. Patient has never had a stress test done in the past. Blood pressure 162/101, heart rate 105, pulse ox 98% on 2 L nasal cannula. Patient is status post 1 dose of IV Lasix 40 mg. Patient is an active smoker of 1 to 1-1/2 packs/day for 30 years. Patient drinks 2-3 aldoholic drinks per day. Dad had [place] in early 70s. Discussed results of echocardiogram and possible underlying etiologies. Discussed recomme ndations for meidcal management, alcohol avoidance and smoking cessation. Plan to start medications at this time and make adjustments. Pulmonary medicine is also following the patient. -EKG: Sinus rhythm with LVH -Chest x-ray: Suspect mild to moderate central vascular congestion or edema. Correlate for fluid overload state. -Echocardiogram reveals EF of 25 to 30%, dilated LV cavity, mild LA dilatation, mild mitral regurgitation. -Laboratory studies: CBC unremarkable. Venous pH 7.42, pCO2 42 and bicarb 27. Electrolytes and renal function are normal. Troponin negative x 1. proBNP 1670, Cepheid viral panel not detected. -Home cardiac medications: None 01/21 Patient is seen and examined. He denies chest pain chest pressure or tightness. He states that shortness of breath is a little bit better. He has been continued on IV Lasix 40 mg daily. Blood pressure 169/88, heart rate 78, pulse ox 97% on room air. Repeat blood work reveals sodium 137, potassium 4.5, BUN 35 and creatinine 1.04. 01/22 Patient is seen and examined. Blood pressure 162/91, heart rate 68, pulse ox 92% on room air. No repeat blood work today. Patient has been maintained on IV Lasix 40 mg daily. Weights and AURA do not appear to be accurate. Yesterday, Farxiga and Aldactone were added. 01/23 Patient seen and examined. Breathing is slowly improving. He thinks his breathing is better from yesterday although he still is having wheezing. Despite medication changes blood pressure remains quite elevated 163/110, heart rate 80, pulse ox 91% on room air. Patient remains on Lasix 40 mg IV daily which we will most likely transition to oral tomorrow. Repeat blood work reveals sodium 135, potassium 4.8, BUN 34 creatinine 0.94. Chest x-ray reveals no acute process. Physical examination: Gen: This is a 49-year-old male in no acute distress VS: reviewed HEENT: Head is atraumatic, normocephalic. Pupils equal, round. Sclerae is anicteric. NECK: Supple. No JVD. LUNGS: Significant bilat wheezing. No intercostal retractions. HEART: Regular rate and rhythm. No murmur. ABDOMEN: Soft No tenderness. EXTREMITIES: No pedal edema. No calf tenderness. NEUROLOGICAL: Patient is awake, alert and oriented x3. Assessment: COPD exacerbation Acute hypoxic respiratory failure Uncontrolled hypertension Acute systolic heart failure Cardiomyopathy, ischemic versus nonischemic, EF 25 to 30%, new dx Chronic tobacco use and dependence Plan: Continue patient on IV Lasix 40 mg daily for another day and most likely transition to oral tomorrow Monitor AURA, daily weights, electrolytes and renal function Continue patient on losartan 50 mg daily Continue the addition of Farxiga 10 mg daily and Aldactone 25 mg daily Change metoprolol succinate to Coreg 6.25 mg twice daily Add hydralazine 50 mg 3 times daily Monitor blood pressure closely Smoking cessation. Patient will be provided the [place] quit line information at discharge. Further recommendations to follow based upon clinical course Nurse practitioner note has been reviewed, I agree with documented findings and plan of care. Patient was seen and examined. Objective - Vital Signs Vital signs: Vital Signs Temp 97.5 F L 01/23/25 08:14 Pulse 80 01/23/25 11:39 Resp 18 01/23/25 11:39 BP 163/110 01/23/25 11:39 Pulse Ox 91 L 01/23/25 11:39 FiO2 Intake & Output 01/22/25 01/23/25 01/23/25 18:59 06:59 18:59 Intake Total 1040 20 550 Output Total 2049 650 900 Balance -1014 -580 -350 Weight 71.2 kg Intake: IV 20 20 10 Invasive Line 1 20 20 10 Oral 1020 540 Output: Urine 2049 650 900 Other: Voiding Method Toilet Toilet Toilet Urinal Urinal Urinal # Voids 1 - Labs CBC & Chem 7: 01/19/25 10:40 01/23/25 06:41 Labs: Abnormal Lab Results - Last 24 Hours (Table) 01/22/25 01/23/25 Range/Units 13:49 06:41 Sodium 134 L 135 L (137-145) mmol/L Chloride 97 L (98-107) mmol/L BUN 38 H 34 H (9-20) mg/dL Glucose 169 H 116 H (74-99) mg/dL
--- NOTE | 2025-01-23 16:06 | P.PN ---
Subjective Progress Note Date: 01/23/25 Principal diagnosis: Acute exacerbation of COPD with acute hypoxic respiratory failure Patient is a 49-year-old male with past medical history significant for asthma/COPD. He is a tobacco current smoker and carries a significant smoking history of 1 to 1-1/2 packs/day for over 30 years. Does have history of childhood asthma. Patient states over the last month he is been more short of breath with intermittent and wheezing on exertion. Over the last 2 to 3 days this is progressively worsened. Did go to urgent care center and was given DuoNeb treatments without much relief. He was directed to emergency department. Workup in the emergency department includes a chest x-ray which does not show any acute cardiopulmonary process. No focal infiltrates or evidence of pne umonia. No pleural effusions, pneumothoraces. CBC unremarkable for leukocytosis. Hemoglobin stable at 14.8 g/dL. Platelets 227. VBG showing a pH of 7.42 and a pCO2 of 42. CMP also unremarkable, electrolytes WDL, creatinine 0.83, glucose 114, LFTs not elevated. Troponin 0.016, NT proBNP 1670. EKG: Sinus rhythm, rate 95 bpm, nonspecific ST/T wave changes. Viral screen negative for influenza, RSV, COVID. Patient currently being evaluated on the cardiac stepdown unit. Currently on 2 L/min nasal cannula. Has diffuse expiratory wheezing. Endorses severe shortness of breath, chest tightness, nonproductive coughing which has worsened over the last 2 to 3 days. Denies any sick contacts. Denies rhinorrhea, sore throat, sinus congestion. Denies any fever/chills, sputum production, hemoptysis, chest pain. Denies any lower extremity swelling, orthopnea, PND. He has been started on a combination of bronchodilators and IV Solu-Medrol. Most recent vital signs: Temperature 98.3 F, heart rate 98 bpm, blood pressure 149/86 mmHg, nontachypneic, SpO2 reading 96% on 2 L/min nasal cannula. Patient was evaluated today on 01/21/2025, patient is slightly better, continues to have some cough and wheezing, not quite ready for discharge. We are seeing the patient for acute exacerbation of COPD, with acute hypoxic respiratory failure and ongoing tobacco dependence for the last 30 years, patient had negative viral screening for influenza A B RSV and COVID. Patient is on bronchodilators and on steroids, some improvement but continues to cough and wheeze. Labs were reviewed, chest x-ray on admission was reviewed, did show some prominence of the pulmonary vasculature, but no clear-cut evidence of pneumonia. Patient did have history of cardiomyopathy, and LV dysfunction with ejection fraction of 25 to 30% and that is being addressed by cardiology on the case. Patient was seen today on 01/22/25, patient continues to have cough and wheeze, some shortness of breath, no chest pain, no fever, no chills, no hemoptysis. Chest x-ray on admission showed minimal pulmonary vascular congestion. Patient was found to have cardiomyopathy and LV dysfunction cardiac workup is pending. Awaiting improvement in his overall pulmonary status before any cardiac intervention. In the meantime, patient remains on Lasix 40 mg daily he is on bronchodilators and steroids, patient was also placed on fark [employer] and Aldactone. Very minimal improvement if any in the last 2 days. Pulmonary grimm patient is on methylprednisolone, DuoNeb, and albuterol side. Cardiac grimm patient is on furosemide, Aldactone, farxiga and metoprolol. Basic metabolic profile today is normal patient had negative screening for influenza RSV and COVID Seen today on 01/23/2025, patient is doing better but continues to cough and wheeze, chest x-ray showed no evidence of pulmonary edema no evidence of pneumonia patient remains on multiple bronchodilators and steroids. And he is also on diuretics as well as multiple cardiac medications. No cardiac intervention is planned until his pulmonary status improves. Today is better than the last couple of days, but not back to baseline. Basic metabolic profile is normal, renal profile is normal Objective - Vital Signs Vital signs: Vital Signs Temp 97.9 F 01/23/25 15:42 Pulse 83 01/23/25 15:42 Resp 18 01/23/25 15:42 BP 143/86 01/23/25 15:42 Pulse Ox 93 L 01/23/25 15:42 FiO2 Intake & Output 01/22/25 01/23/25 01/23/25 18:59 06:59 18:59 Intake Total 1040 20 2564 Output Total 2049 650 2800 Balance -1010 -630 -236 Weight 71.2 kg Intake: IV 20 20 20 Invasive Line 1 20 20 20 Oral 1020 2544 Output: Urine 2049 650 2800 Other: Voiding Method Toilet Toilet Toilet Urinal Urinal Urinal # Voids 1 - Exam GENERAL EXAM: Alert, 49-year-old male, not in distress, on room air HEAD: Normocephalic and atraumatic EYES: Normal reaction of pupils, equal size. NOSE: Clear with pink turbinates. THROAT: No erythema or exudates. NECK: No masses, no JVD. CHEST: No chest wall deformity. LUNGS: Continues to have wheezing bilaterally but much improved compared to the last couple of days CVS: S1 and S2 normal with no audible murmur, regular rhythm. No extra heart sounds ABDOMEN: No hepatosplenomegaly, active bowel sounds, no guarding or rigidity. SKIN: No rashes CENTRAL NERVOUS SYSTEM: Alert and oriented x 3 no gross focal deficit EXTREMITIES: No clubbing edema or cyanosis - Labs CBC & Chem 7: 01/19/25 10:40 01/23/25 06:41 Labs: Abnormal Lab Results - Last 24 Hours (Table) 01/23/25 Range/Units 06:41 Sodium 135 L (137-145) mmol/L BUN 34 H (9-20) mg/dL Glucose 116 H (74-99) mg/dL Assessment and Plan Assessment: Impression: Acute hypoxic respiratory failure Acute COPD exacerbation Cardiomyopathy and LV dysfunction, being addressed by cardiology Acute systolic congestive heart failure Benign essential hypertension Tobacco dependence syndrome Recommendation: Continue present supportive care measures Continue bronchodilators and steroids Continue Lasix and Aldactone Continue DVT prophylaxis Continue farxiga Continue Symbicort Not ready for discharge Pulmonary status is improving a bit but not back to normal and the patient is not ready for discharge Will continue to follow Time with Patient: Less than 30
[2025-01-23] MEDS: carvediloL 6.25 MG TAB PO SCH (17:04)
[2025-01-23] MEDS: hydrALAZINE HCL 50 MG TAB PO SCH (17:04)
[2025-01-24 08:28] VITALS: RESP 17; TEMP 97.7
[2025-01-24 11:11] VITALS: BP 133/80
--- NOTE | 2025-01-24 11:22 | P.PN ---
Subjective Progress Note Date: 01/24/25 Reason for Consult (text): Pulmonary edema History of present illness: This is a 49-year-old male with past medical history of asthma as a child, COPD, tobacco use and dependence. We have been asked to evaluate the patient for pulmonary edema. Patient developed shortness of breath about 1 month ago with dyspnea on exertion. Over the past couple days its progressively worsened and he went to the urgent care center. He was given a nebulizer treatment without improvement and was sent to the emergency center at [facility] for further evaluation and treatment. Patient has not seen PCP for several years. He does not check his blood pressure at home. Patient currently denies any chest pain or chest pressure. He states he still has a cough with minimal sputum production. He feels that his breathing is not improved. Patient has never had a stress test done in the past. Blood pressure 162/101, heart rate 105, pulse ox 98% on 2 L nasal cannula. Patient is status post 1 dose of IV Lasix 40 mg. Patient is an active smoker of 1 to 1-1/2 packs/day for 30 years. Patient drinks 2-3 aldoholic drinks per day. Dad had [place] in early 70s. Discussed results of echocardiogram and possible underlying etiologies. Discussed recommendations for meidcal management, alcohol avoidance and smoking cessation. Plan to start medications at this time and make adjustments. Pulmonary medicine is also following the patient. -EKG: Sinus rhythm with LVH -Chest x-ray: Suspect mild to moderate central vascular congestion or edema. Correlate for fluid overload state. -Echocardiogram reveals EF of 25 to 30%, dilated LV cavity, mild LA dilatation, mild mitral regurgitation. -Laboratory studies: CBC unremarkable. Venous pH 7.42, pCO2 42 and bicarb 27. Electrolytes and renal function are normal. Troponin negative x 1. proBNP 1670, Cepheid viral panel not detected. -Home cardiac medications: None 01/21 Patient is seen and examined. He denies chest pain chest pressure or tightness. He states that shortness of breath is a little bit better. He has been continued on IV Lasix 40 mg daily. Blood pressure 169/88, heart rate 78, pulse ox 97% on room air. Repeat blood work reveals sodium 137, potassium 4.5, BUN 35 and creatinine 1.04. 01/22 Patient is seen and examined. Blood pressure 162/91, heart rate 68, pulse ox 92% on room air. No repeat blood work today. Patient has been maintained on IV Lasix 40 mg daily. Weights and AURA do not appear to be accurate. Yesterday, Farxiga and Aldactone were added. 01/23 Patient seen and examined. Breathing is slowly improving. He thinks his breathing is better from yesterday although he still is having wheezing. Despite medication changes blood pressure remains quite elevated 163/110, heart rate 80, pulse ox 91% on room air. Patient remains on Lasix 40 mg IV daily which we will most likely transition to oral tomorrow. Repeat blood work reveals sodium 135, potassium 4.8, BUN 34 creatinine 0.94. Chest x-ray reveals no acute process. 01/24 Patient seen and examined. Blood pressure 167/94, heart rate 89, pulse ox 93% on room air. Repeat blood work reveals sodium 135, potassium 4.8, BUN 34 creatinine 0.94. Weight appears to be unchanged. Patient has been maintained o n IV Lasix 40 mg daily, beta-brittany was changed to Coreg and hydralazine was added yesterday for blood pressure control with some noted improvement. Patient continues to have improvement of his breathing status. He has been ambulating without chest pain or chest pressure.. Physical examination: Gen: This is a 49-year-old male in no acute distress VS: reviewed HEENT: Head is atraumatic, normocephalic. Pupils equal, round. Sclerae is anicteric. NECK: Supple. No JVD. LUNGS: Mild ificant bilat wheezing. No intercostal retractions. HEART: Regular rate and rhythm. No murmur. ABDOMEN: Soft No tenderness. EXTREMITIES: No pedal edema. No calf tenderness. NEUROLOGICAL: Patient is awake, alert and oriented x3. Assessment: COPD exacerbation Acute hypoxic respiratory failure Uncontrolled hypertension Acute systolic heart failure Cardiomyopathy, ischemic versus nonischemic, EF 25 to 30%, new dx Chronic tobacco use and dependence Plan: Transition IV Lasix to oral 40 mg daily Continue patient on losartan 50 mg daily, hydralazine 50 mg 3 times daily Increase Coreg to 12.5 mg twice daily additional 6.25 now Continue the addition of Farxiga 10 mg daily and Aldactone 25 mg daily Smoking cessation. Patient will be provided the [employer] quit line information at discharge. Patient is cleared for discharge from cardiology perspective. Patient will follow-up with Dr. Khan in 1-2 weekS. Nurse practitioner note has been reviewed, I agree with documented findings and plan of care. Patient was seen and examined. Objective - Vital Signs Vital signs: Vital Signs Temp 97.7 F 01/24/25 08:26 Pulse 89 01/24/25 08:26 Resp 17 01/24/25 08:26 BP 167/94 01/24/25 08:26 Pulse Ox 93 L 01/24/25 08:26 FiO2 Intake & Output 01/23/25 01/24/25 01/24/25 18:59 06:59 18:59 Intake Total 3044 248 240 Output Total 3000 1300 Balance 44 248 -1060 Weight 71.1 kg Intake: IV 20 30 Invasive Line 1 20 20 Invasive Line 2 10 Oral 3024 218 240 Output: Urine 3000 1300 Other: Voiding Method Toilet Toilet Toilet Urinal Urinal # Voids 500 - Labs CBC & Chem 7: 01/19/25 10:40 01/23/25 06:41
[2025-01-24] MEDS: carvediloL 6.25 MG TAB PO STA (11:38)
[2025-01-24 12:20] VITALS: PULSE 92
--- NOTE | 2025-01-24 14:15 | P.DS ---
Providers Date of admission: 01/19/25 14:19 Attending physician: Darwin Grijalva MD Consults: 01/19/25 13:10 Consult Physician Stat Consulting Provider: Luis Khan Consult Reason/Comments: Pulmonary edema Do you want consulting provider notified?: Yes 01/19/25 14:03 Consult Physician Routine Consulting Provider: Ryland Lara Reason/Comments: copd Do you want consulting provider notified?: Yes Primary care physician: Andrea Ascencio MD Hospital Course: Discharge diagnoses: Acute COPD exacerbation: Treated with inhalers/bronchodilator protocol, steroids during hospitalization, continued on albuterol, Symbicort, at discharge. Continue prednisone for 3 more days at discharge. Pulmonary valve consulted Outpatient follow-up with pulmonary Acute systolic CHF: Cardiomyopathy with EF 25 to 30% Hypertension Patient received IV diuresis during hospitalization, echocardiogram showed EF 25 to 30%, cardiology consulted. Cardiology recommended guideline directed medical therapy. Patient continued on aspirin, statin, losartan, Coreg, hydralazine, Aldactone, Lasix at discharge. Outpatient follow-up with cardiology. Nicotine dependence: Counseling to quit smoking. Hospital course: his is a pleasant 49 years old male with no significant past medical history Presents because of dyspnea for 4 to 5 days associated with cough and white phlegm No chest pain Patient smokes about 1 pack/day and he was counseled to quit and he agrees to the nicotine patch patient denies GI/ symptoms Has little headache but no dizziness weakness numbness No significant leg swelling He is not using any home oxygen and currently he is on 2 L oxygen via nasal cannula with oxygen saturation 94% Patient is hemodynamically stable though, afebrile, blood pressure slightly elevated CBC, BMP, liver enzymes INR and troponin were negative Mild virus Influenza A and type B, RSV, SARS (coronavirus) are undetected Chest x-ray read by radiologist as mild to moderate CHF, when I reviewed the chest x-ray myself looks more like COPD changes proBNP is mildly elevated 1670 EKG showing sinus rhythm at 95 with LVH criteria and some mild ST depression in the lateral lead related to her hypertrophy changes 01/20 Patient feels the same still short of breath He still has extensive bilateral wheezing. Also with careful examination he has basal crepitation No leg edema. No other new complaints. Patient asking if he is going to stay 1 more night. Echocardiogram showed low ejection fraction 25 to 30% with dilated left ventricle. Patient currently remains on IV Solu-Medrol 60 mg. He received 1 time dose of IV Lasix, will going to place him on 40 mg of IV Lasix daily. Cardiology will evaluate the patient 01/21 Patient feels improved, more awake and energetic. He reports improvement in his breathing. Patient still has significantly wheezing although it is improving as well He keeps on IV Solu-Medrol 60 mg and IV Lasix 40 mg daily. Patient also currently getting metoprolol and losartan. He is on room air. No chest pain. No other new complaint. Patient understands he needs to stay in the hospital although he is eager to go home. 01/22 Patient still has extensive wheezing and shortness of breath although he feels improvement. He is not ready for discharge. No other new complaint. He has good appetite. Vitals controlled. BMP and creatinine are within the reference range. He remains on IV Solu-Medrol and IV Lasix 40 mg daily He continued on other cardiac medication. 01/23 Patient continued to improve slowly and gradually He has mild wheezing and prolonged expiration on auscultation. No chest pain no other new complaints. Patient rika on IV Solu-Medrol and IV Lasix daily as well as other cardiac medication like metoprolol and lisinopril. 01/24--patient was seen and examined today. Patient feeling better today. Okay to discharge per cardiology. Patient is euvolemic. Patient continued on aspirin, statin, Lasix, hydralazine, losartan, Aldactone, Coreg at discharge. Cardiology recommended outpatient follow-up. Patient continued on albuterol Symbicort inhaler and prednisone for 3 more days at discharge. Follow-up with PCP in 1 week. Follow-up with pulmonary and cardiology as outpatient. PHYSICAL EXAMINATION: GENERAL: The patient is A&O x3, NAD HEENT: EOMI, Sclerae anicteric, Moist Mucous membranes Neck: Supple, Non tender, No JVD PULMONARY: Equal breath souds B/L, No wheezing, No crackles. CARDIOVASCULAR: S1, S2 present. No murmurs, rubs, or gallops. ABDOMEN: Soft, nontender, nondistended, normoactive bowel sounds. No guarding or rebound tenderness. MUSCULOSKELETAL: No edema, No cyanosis. No clubbing. Normal ROM. Intact peripheral pulses. NEUROLOGICAL: CN 2-12 grossly intact. No FND SKIN: No rashes. Dictation was produced using [employer] dictation software. please excuse any grammatical, word or spelling errors. Patient Condition at Discharge: Fair Plan - Discharge Summary New Discharge Prescriptions: New Spironolactone [Aldactone] 50 mg PO DAILY #60 tab hydrALAZINE HCL [Apresoline] 50 mg PO TID #90 tab Losartan [Cozaar] 100 mg PO DAILY #60 tab Aspirin EC [Ecotrin Low Dose] 81 mg PO DAILY #30 tab Dapagliflozin Propanediol [Farxiga] 10 mg PO DAILY #30 tab Budesonide-Formot 160-4.5 Mcg [Symbicort 160-4.5 Mcg Inhaler] 2 puff INHALATION RT-BID #1 each Albuterol Inhaler [Ventolin Hfa Inhaler] 1 - 2 puff INHALATION Q6H PRN #2 each PRN Reason: Shortness Of Breath carvediloL [Coreg*] 12.5 mg PO BID-W/MEALS #60 tab predniSONE [Deltasone] 40 mg PO DAILY #6 tab Furosemide [Lasix] 40 mg PO DAILY #30 tab Atorvastatin Calcium [Lipitor] 40 mg PO DAILY #30 tab Discharge Medication List Albuterol Inhaler [Ventolin Hfa Inhaler] 1 - 2 puff INHALATION Q6H PRN #2 each 01/24/25 [Rx] Aspirin EC [Ecotrin Low Dose] 81 mg PO DAILY #30 tab 01/24/25 [Rx] Atorvastatin Calcium [Lipitor] 40 mg PO DAILY #30 tab 01/24/25 [Rx] Budesonide-Formot 160-4.5 Mcg [Symbicort 160-4.5 Mcg Inhaler] 2 puff INHALATION RT-BID #1 each 01/24/25 [Rx] Dapagliflozin Propanediol [Farxiga] 10 mg PO DAILY #30 tab 01/24/25 [Rx] Furosemide [Lasix] 40 mg PO DAILY #30 tab 01/24/25 [Rx] Losartan [Cozaar] 100 mg PO DAILY #60 tab 01/24/25 [Rx] Spironolactone [Aldactone] 50 mg PO DAILY #60 tab 01/24/25 [Rx] carvediloL [Coreg*] 12.5 mg PO BID-W/MEALS #60 tab 01/24/25 [Rx] hydrALAZINE HCL [Apresoline] 50 mg PO TID #90 tab 01/24/25 [Rx] predniSONE [Deltasone] 40 mg PO DAILY #6 tab 01/24/25 [Rx] Follow up Appointment(s)/Referral(s): Ryland Lara MD [STAFF PHYSICIAN] - 1 Week (Please call on Sunday to schedule hospital follow up) Luis Khan DO [STAFF PHYSICIAN] - 1 Week (Please call on Sunday to schedule hospital follow up apt. ) Andrea Ascencio MD [Primary Care Provider] - 1-2 days (Please call on Sunday to schedule hospital follow up. ) Patient Instructions/Handouts: Heart Failure (DC), Pulmonary Edema (DC), How to Stop Smoking (DC) Discharge Disposition: HOME SELF-CARE
--- NOTE | 2025-01-24 14:36 | P.PN ---
Subjective Progress Note Date: 01/24/25 Principal diagnosis: Acute exacerbation of COPD with acute hypoxic respiratory failure Patient is a 49-year-old male with past medical history significant for asthma/COPD. He is a tobacco current smoker and carries a significant smoking history of 1 to 1-1/2 packs/day for over 30 years. Does have history of childhood asthma. Patient states over the last month he is been more short of breath with intermittent and wheezing on exertion. Over the last 2 to 3 days this is progressively worsened. Did go to urgent care center and was given DuoNeb treatments without much relief. He was directed to emergency department. Workup in the emergency department includes a chest x-ray which does not show any acute cardiopulmonary process. No focal infiltrates or evidence of pne umonia. No pleural effusions, pneumothoraces. CBC unremarkable for leukocytosis. Hemoglobin stable at 14.8 g/dL. Platelets 227. VBG showing a pH of 7.42 and a pCO2 of 42. CMP also unremarkable, electrolytes WDL, creatinine 0.83, glucose 114, LFTs not elevated. Troponin 0.016, NT proBNP 1670. EKG: Sinus rhythm, rate 95 bpm, nonspecific ST/T wave changes. Viral screen negative for influenza, RSV, COVID. Patient currently being evaluated on the cardiac stepdown unit. Currently on 2 L/min nasal cannula. Has diffuse expiratory wheezing. Endorses severe shortness of breath, chest tightness, nonproductive coughing which has worsened over the last 2 to 3 days. Denies any sick contacts. Denies rhinorrhea, sore throat, sinus congestion. Denies any fever/chills, sputum production, hemoptysis, chest pain. Denies any lower extremity swelling, orthopnea, PND. He has been started on a combination of bronchodilators and IV Solu-Medrol. Most recent vital signs: Temperature 98.3 F, heart rate 98 bpm, blood pressure 149/86 mmHg, nontachypneic, SpO2 reading 96% on 2 L/min nasal cannula. Patient was evaluated today on 01/21/2025, patient is slightly better, continues to have some cough and wheezing, not quite ready for discharge. We are seeing the patient for acute exacerbation of COPD, with acute hypoxic respiratory failure and ongoing tobacco dependence for the last 30 years, patient had negative viral screening for influenza A B RSV and COVID. Patient is on bronchodilators and on steroids, some improvement but continues to cough and wheeze. Labs were reviewed, chest x-ray on admission was reviewed, did show some prominence of the pulmonary vasculature, but no clear-cut evidence of pneumonia. Patient did have history of cardiomyopathy, and LV dysfunction with ejection fraction of 25 to 30% and that is being addressed by cardiology on the case. Patient was seen today on 01/22/25, patient continues to have cough and wheeze, some shortness of breath, no chest pain, no fever, no chills, no hemoptysis. Chest x-ray on admission showed minimal pulmonary vascular congestion. Patient was found to have cardiomyopathy and LV dysfunction cardiac workup is pending. Awaiting improvement in his overall pulmonary status before any cardiac intervention. In the meantime, patient remains on Lasix 40 mg daily he is on bronchodilators and steroids, patient was also placed on fark [employer] and Aldactone. Very minimal improvement if any in the last 2 days. Pulmonary grimm patient is on methylprednisolone, DuoNeb, and albuterol side. Cardiac grimm patient is on furosemide, Aldactone, farxiga and metoprolol. Basic metabolic profile today is normal patient had negative screening for influenza RSV and COVID Seen today on 01/23/2025, patient is doing better but continues to cough and wheeze, chest x-ray showed no evidence of pulmonary edema no evidence of pneumonia patient remains on multiple bronchodilators and steroids. And he is also on diuretics as well as multiple cardiac medications. No cardiac intervention is planned until his pulmonary status improves. Today is better than the last couple of days, but not back to baseline. Basic metabolic profile is normal, renal profile is normal Seen today on 01/24/2025, patient is doing much better, breathing a lot easier, less cough less wheezing less shortness of breath, remains on room air, patient is wondering if he can go home, and I basically felt that the patient could go home as long as he is cleared by cardiology. Patient does have severe cardiomyopathy that needs to be addressed, and apparently he was told that this could be addressed on outpatient basis by cardiology if that is the case and now that his COPD exacerbation is much better, could clear the patient for discharge. And he could have follow-up with me on outpatient basis. Patient will need to be discharged on bronchodilators and steroids. Prednisone taper over 2 weeks. And he should not go back to smoking. Objective - Vital Signs Vital signs: Vital Signs Temp 97.7 F 01/24/25 08:26 Pulse 92 01/24/25 12:19 Resp 17 01/24/25 11:10 BP 133/80 01/24/25 11:10 Pulse Ox 95 01/24/25 11:10 FiO2 Intake & Output 01/23/25 01/24/25 01/24/25 18:59 06:59 18:59 Intake Total 3044 248 240 Output Total 3000 1300 Balance 44 248 -1060 Weight 71.1 kg Intake: IV 20 30 Invasive Line 1 20 20 Invasive Line 2 10 Oral 3024 218 240 Output: Urine 3000 1300 Other: Voiding Method Toilet Toilet Toilet Urinal Urinal # Voids 500 - Exam GENERAL EXAM: Alert, 49-year-old male, not in distress, on room air HEAD: Normocephalic and atraumatic EYES: Normal reaction of pupils, equal size. NOSE: Clear with pink turbinates. THROAT: No erythema or exudates. NECK: No masses, no JVD. CHEST: No chest wall deformity. LUNGS: Clear bilaterally, minimal wheezing only on forced expiratory maneuver CVS: S1 and S2 normal with no audible murmur, regular rhythm. No extra heart sounds ABDOMEN: No hepatosplenomegaly, active bowel sounds, no guarding or rigidity. SKIN: No rashes CENTRAL NERVOUS SYSTEM: Alert and oriented x 3 no gross focal deficit EXTREMITIES: No clubbing edema or cyanosis - Labs CBC & Chem 7: 01/19/25 10:40 01/23/25 06:41 Assessment and Plan Assessment: Impression: Acute hypoxic respiratory failure Acute COPD exacerbation Cardiomyopathy and LV dysfunction, being addressed by cardiology Acute systolic congestive heart failure Benign essential hypertension Tobacco dependence syndrome Recommendation: Continue present supportive care measures Continue bronchodilators patient can be discharged home on albuterol, Symbicort, and prednisone burst and taper over 2 weeks starting at 30 mg daily Continue Lasix and Aldactone Continue DVT prophylaxis Continue farxiga Continue Symbicort Patient should have outpatient follow-up with me regarding his COPD Patient should be cleared by cardiology before discharge. Time with Patient: Less than 30
[2025-01-24] MEDS ORDERED: carvediloL 12.5 MG TAB PO SCH (17:30)
[2025-01-25] MEDS ORDERED: FUROSEMIDE 40 MG TAB PO SCH (09:00)
[2025-01-25] MEDS ORDERED: predniSONE 20 MG TAB PO SCH (09:00)
== END 2025-01-24 15:26 | disposition home or self-care (01) | DRG 291 ==
LOC: EC 10:01 → 3SCARD 14:19
PROVIDERS: ADMIT Internal Medicine; ATTEND Internal Medicine
DX: I11.0 Hypertensive heart disease with heart failure (principal); I50.21 Acute systolic (congestive) heart failure; J96.01 Acute respiratory failure with hypoxia; J44.1 Chronic obstructive pulmonary disease with (acute) exacerbation; J45.901 Unspecified asthma with (acute) exacerbation; I42.8 Other cardiomyopathies; F17.210 Nicotine dependence, cigarettes, uncomplicated; Z79.82 Long term (current) use of aspirin; Z79.899 Other long term (current) drug therapy; Z79.51 Long term (current) use of inhaled steroids
CPT/HCPCS: 36415; 71045; 71046; 80048; 80053; 82803; 83605; 83735; 83880; 84484; 85025; 85610; 85730; 87636; 93306; 94640; 94760; 96374; 96375; 99285

== ENCOUNTER → 2025-02-07 | Outpatient (CLI) | payer SELFPAY ==
[2025-02-08 06:13] LABS: HCT 41.3 % (39.6-50.0); HGB 13.2 g/dL (13.0-17.0); MCH 28.1 pg (27.0-32.0); MCV 88.1 FL (80.0-97.0); Mean Platelet Volume 11.1 FL (9.5-12.2); NRBC Per 100 WBC 0 X 10*3/uL (0.00-0.01); Platelet Count 306 X 10*3/uL (140-440); RBC 4.69 X 10*6/uL (4.40-5.60); WBC 11.41 X 10*3/uL (4.50-10.00)
[2025-02-08 08:32] LABS: BUN/Creat Ratio 13.86 Ratio (12.00-20.00); Blood Urea Nitrogen 19.4 mg/dL (9.0-27.0); Calcium 9.3 mg/dL (8.7-10.3); Carbon Dioxide 23.9 mmol/L (21.6-31.8); Chloride 106 mmol/L (96-109); Glucose 136 mg/dL (70-110); Magnesium 2.2 mg/dL (1.5-2.4); Potassium 5.3 mmol/L (3.5-5.5); Sodium 142 mmol/L (135-145)
== END | disposition home or self-care (01) ==
LOC: LABWHC1 10:15
PROVIDERS: ATTEND Internal Medicine
DX: Z00.00 Encounter for general adult medical examination without abnormal findings (principal)
CPT/HCPCS: 36415; 80048; 83735; 85027

== ENCOUNTER 2025-03-31 00:36 | Emergency (ER) | payer OTHER ==
[2025-03-31 00:43] VITALS: TEMP 97.8
[2025-03-31] MEDS ORDERED: MORPHINE SULFATE 4 MG/ML SYRINGE IVP PRN (00:55)
--- NOTE | 2025-03-31 00:56 | ED ---
SOB HPI - General Chief Complaint: Shortness of Breath Stated Complaint: KALPESH Time Seen by Provider: 03/31/25 00:48 Source: patient, RN notes reviewed, old records reviewed Mode of arrival: wheelchair Limitations: no limitations - History of Present Illness Initial Comments: This is a 49 male who presents with his for severe shortness of breath. Kn own smoker known COPD coming in for inability to catch his breath. Patient was doing a lot of work all weekend and admits to continuing to smoke spice COPD diagnosis and has been having worsening cough and worsening shortness of breath to the point where now he feels like he cannot catch his breath cannot take a deep breath MD Complaint: shortness of breath, cough, "asthma attack" -: hour(s) Severity: severe Severity scale (1-10): 10 Consistency: constant Improves With: nothing Worsens With: exertion, movement Known History Of: COPD, asthma, congestive heart failure Associated Symptoms: cough, sputum production Treatments Prior to Arrival: none - Related Data Previous Rx's Medication Instructions Recorded Albuterol Inhaler [Ventolin Hfa 1 - 2 puff INHALATION Q6H PRN #2 01/24/25 Inhaler] each Aspirin EC [Ecotrin Low Dose] 81 mg PO DAILY #30 tab 01/24/25 Atorvastatin Calcium [Lipitor] 40 mg PO DAILY #30 tab 01/24/25 Budesonide-Formot 160-4.5 Mcg 2 puff INHALATION RT-BID #1 each 01/24/25 [Symbicort 160-4.5 Mcg Inhaler] Dapagliflozin Propanediol [Farxiga] 10 mg PO DAILY #30 tab 01/24/25 Furosemide [Lasix] 40 mg PO DAILY #30 tab 01/24/25 Losartan [Cozaar] 100 mg PO DAILY #60 tab 01/24/25 Spironolactone [Aldactone] 50 mg PO DAILY #60 tab 01/24/25 carvediloL [Coreg*] 12.5 mg PO BID-W/MEALS #60 tab 01/24/25 hydrALAZINE HCL [Apresoline] 50 mg PO TID #90 tab 01/24/25 predniSONE [Deltasone] 40 mg PO DAILY #6 tab 01/24/25 Albuterol Inhaler [Ventolin Hfa 1 - 2 puff INHALATION Q6H PRN #1 03/31/25 Inhaler] each Albuterol Nebulized [Ventolin 2.5 mg INHALATION Q4H 8 Days #300 03/31/25 Nebulized] ml predniSONE 50 mg PO DAILY #5 tab 03/31/25 Allergies Allergy/AdvReac Type Severity Reaction Status Date / Time No Known Allergies Allergy Verified 03/31/25 00:43 Review of Systems ROS Statement: Those systems with pertinent positive or pertinent negative responses have been documented in the HPI. ROS Other: All systems not noted in ROS Statement are negative. Past Medical History Past Medical History: Asthma, Heart Failure, COPD History of Any Multi-Drug Resistant Organisms: None Reported Past Surgical History: Hernia Repair Past Anesthesia/Blood Transfusion Reactions: No Reported Reaction Past Psychological History: No Psychological Hx Reported Smoking Status: Current every day smoker Past Alcohol Use History: Occasional Past Drug Use History: Marijuana General Exam Limitations: no limitations General appearance: anxious, in distress Head exam: Present: atraumatic, normocephalic, normal inspection Eye exam: Present: normal appearance, PERRL, EOMI. Absent: scleral icterus, conjunctival injection, periorbital swelling ENT exam: Present: normal exam, mucous membranes moist Neck exam: Present: normal inspection. Absent: tenderness, meningismus, lymphadenopathy Respiratory exam: Present: respiratory distress, wheezes, accessory muscle use, decreased breath sounds, prolonged expiratory. Absent: rales, rhonchi, stridor Cardiovascular Exam: Present: regular rate, normal rhythm, normal heart sounds. Absent: systolic murmur, diastolic murmur, rubs, gallop, clicks GI/Abdominal exam: Present: soft, normal bowel sounds. Absent: distended, tenderness, guarding, rebound, rigid Extremities exam: Present: normal inspection, full ROM, normal capillary refill. Absent: tenderness, pedal edema, joint swelling, calf tenderness Back exam: Present: normal inspection Neurological exam: Present: alert, oriented X3, CN II-XII intact Psychiatric exam: Present: normal affect, normal mood Skin exam: Present: warm, dry, intact, normal color. Absent: rash Course Vital Signs 03/31/25 03/31/25 03/31/25 00:41 01:00 01:09 Temperature 97.8 F Pulse Rate 80 92 Respiratory 24 24 Rate Blood Pressure 127/77 O2 Sat by Pulse 94 L Oximetry 03/31/25 03/31/25 03/31/25 01:36 02:15 02:36 Temperature Pulse Rate 81 73 80 Respiratory Rate Blood Pressure O2 Sat by Pulse Oximetry 03/31/25 02:39 Temperature Pulse Rate 86 Respiratory 19 Rate Blood Pressure 134/84 O2 Sat by Pulse 100 Oximetry - Reevaluation(s) Reevaluation #1: 03/31/25 02:51 Records reviewed Reevaluation #2: 03/31/25 02:52 Breathing improved after initial breathing treatment Shortness of breath resolved after second breathing treatment Patient consulted extensively including smoking Reevaluation #3: 03/31/25 02:52 Patient informed of results and questions answered Reevaluation #4: Was pt. sent in by a medical professional or institution (, [facility], [facility], urgent care, hospital, or half-way...) When possible be specific @ -no Did you speak to anyone other than the patient for history (EMS, parent, family, police, friend...)? What history was obtained from this source @ -no Did you review nursing and triage notes (agree or disagree)? Why? @ -agree Are old charts reviewed (outside hosp., previous admission, EMS record, old EKG, old radiological studies, urgent care reports/EKG's, half-way records)? Report findings @ -yes Differential Diagnosis (chest pain, altered mental status, abdominal pain women, abdominal pain men, vaginal bleeding, weakness, fever, dyspnea, syncope, headache, dizziness, GI bleed, back pain, seizure, CVA, palpatations, mental health, musculoskeletal)? @ -prior EKG interpreted by me (3pts min.). @ -yes X-rays interpreted by me (1pt min.). @ -yes negative for acute disease CT interpreted by me (1pt min.). @ -no U/S interpreted by me (1pt. min.). @ -no What testing was considered but not performed or refused? (CT, X-rays, U/S, labs)? Why? @ -none What meds were considered but not given or refused? Why? @ -none Did you discuss the management of the patient with other professionals (professionals i.e. , [facility], [facility], lab, RT, psych nurse, social worker clinical, telephone sex worker, teacher, debt recovery officer, business case analyst)? Give summary @ -no Was smoking cessation discussed for >3mins.? @ -no Was critical care preformed (if so, how long)? @ -no Were there social determinants of health that impacted care today? How? (Homelessness, low income, unemployed, alcoholism, drug addiction, transportation, low edu. Level, literacy, decrease access to med. care, correction, rehab)? @ -none Was there de-escalation of care discussed even if they declined (Discuss DNR or withdrawal of care, Hospice)? DNR status @ -no What co-morbidities impacted this encounter? (DM, HTN, Smoking, COPD, CAD, Cancer, CVA, ARF, Chemo, Hep., AIDS, mental health diagnosis, sleep apnea, morbid obesity)? @ -none Was patient admitted / discharged? Hospital course, mention meds given and route, prescriptions, significant lab abnormalities, going to OR and other pertinent info. @ - 49 male to the ER for evaluation of severe COPD exacerbation although improved and resolved here in the ER patient feels well for discharge home Discharge Undiagnosed new problem with uncertain prognosis? @ -no Drug Therapy requiring intensive monitoring for toxicity (Heparin, Nitro, Insulin, Cardizem)? @ -no Were any procedures done? @ -no Diagnosis/symptom? @ -significant COPD exacerbation Acute, or Chronic, or Acute on Chronic? @ -Acute Uncomplicated (without systemic symptoms) or Complicated (systemic symptoms)? @ -Complicated Side effects of treatment? @ -no Exacerbation, Progression, or Severe Exacerbation? @ -exacerbation Poses a threat to life or bodily function? How? (Chest pain, USA, NC, pneumonia, PE, COPD, DKA, ARF, appy, cholecystitis, CVA, Diverticulitis, Homicidal, Suicidal, threat to staff... and all critical care pts) @ -yes negative for acute disease Reevaluation #5: Differential Dyspnea: Coronary syndrome, arrhythmia, tamponade, asthma, COPD, pulmonary embolism, pneumonia, pneumothorax, pulmonary effusion, anaphylaxis, diabetic ketoacidosis, flailed chest, pulmonary contusion, diaphragmatic rupture, anemia, neuromuscular, this is not meant to be an all-inclusive list. Medical Decision Making - Medical Decision Making 49 male to the ER for evaluation of severe COPD exacerbation although improved and resolved here in the ER patient feels well for discharge home - Lab Data Result diagrams: 03/31/25 00:59 03/31/25 00:59 Lab Results 03/31/25 03/31/25 03/31/25 Range/Units 00:59 00:59 00:59 WBC 11.82 H (4.50-10.00) 10*3/uL RBC 4.63 (4.40-5.60) 10*6/uL Hgb 13.6 (13.0-17.0) g/dL Hct 39.7 (39.6-50.0) % MCV 85.7 (80.0-97.0) fL MCH 29.4 (27.0-32.0) pg MCHC 34.3 (32.0-37.0) g/dL Plt Count 329 (140-440) 10*3/uL MPV 9.7 (9.5-12.2) fL Immature Gran % (Auto) 0.5 % Neutrophils % 62.5 % Lymphocytes % 26.0 % Monocytes % 8.0 % Eosinophils % 2.5 % Basophils % 0.5 % Immature Gran # 0.06 H (0.00-0.04) 10*3/uL Neutrophils # 7.39 (1.80-7.70) 10*3/uL Lymphocytes # 3.07 (0.90-5.00) 10*3/uL Monocytes # 0.94 (0.20-1.00) 10*3/uL Eosinophils # 0.30 (0.04-0.35) 10*3/uL Basophils # 0.06 (0.00-0.10) 10*3/uL PT 10.8 (10.0-12.5) sec INR 1.0 (<1.2) APTT 29.4 (22.0-30.0) sec Sodium 139 (137-145) mmol/L Potassium 4.1 (3.5-5.1) mmol/L Chloride 105 (98-107) mmol/L Carbon Dioxide 20 L (22-30) mmol/L Anion Gap 14 mmol/L BUN 26 H (9-20) mg/dL Creatinine 1.63 H (0.66-1.25) mg/dL Est GFR (CKD-EPI)AfAm 57 (>60 ml/min/1.73 sqM) Est GFR (CKD-EPI)NonAf 49 (>60 ml/min/1.73 sqM) Glucose 112 H (74-99) mg/dL Plasma Lactic Acid Amos (0.7-2.0) mmol/L Calcium 9.6 (8.4-10.2) mg/dL Magnesium 2.4 H (1.6-2.3) mg/dL Total Bilirubin 0.6 (0.2-1.3) mg/dL AST 24 (17-59) U/L ALT 24 (4-49) U/L Alkaline Phosphatase 83 (38-126) U/L Troponin I (0.000-0.034) ng/mL NT-Pro-B Natriuret Pep 74 pg/mL Total Protein 7.2 (6.3-8.2) g/dL Albumin 4.7 (3.5-5.0) g/dL 03/31/25 03/31/25 Range/Units 00:59 00:59 WBC (4.50-10.00) 10*3/uL RBC (4.40-5.60) 10*6/uL Hgb (13.0-17.0) g/dL Hct (39.6-50.0) % MCV (80.0-97.0) fL MCH (27.0-32.0) pg MCHC (32.0-37.0) g/dL Plt Count (140-440) 10*3/uL MPV (9.5-12.2) fL Immature Gran % (Auto) % Neutrophils % % Lymphocytes % % Monocytes % % Eosinophils % % Basophils % % Immature Gran # (0.00-0.04) 10*3/uL Neutrophils # (1.80-7.70) 10*3/uL Lymphocytes # (0.90-5.00) 10*3/uL Monocytes # (0.20-1.00) 10*3/uL Eosinophils # (0.04-0.35) 10*3/uL Basophils # (0.00-0.10) 10*3/uL PT (10.0-12.5) sec INR (<1.2) APTT (22.0-30.0) sec Sodium (137-145) mmol/L Potassium (3.5-5.1) mmol/L Chloride (98-107) mmol/L Carbon Dioxide (22-30) mmol/L Anion Gap mmol/L BUN (9-20) mg/dL Creatinine (0.66-1.25) mg/dL Est GFR (CKD-EPI)AfAm (>60 ml/min/1.73 sqM) Est GFR (CKD-EPI)NonAf (>60 ml/min/1.73 sqM) Glucose (74-99) mg/dL Plasma Lactic Acid Amos 2.0 (0.7-2.0) mmol/L Calcium (8.4-10.2) mg/dL Magnesium (1.6-2.3) mg/dL Total Bilirubin (0.2-1.3) mg/dL AST (17-59) U/L ALT (4-49) U/L Alkaline Phosphatase (38-126) U/L Troponin I <0.012 (0.000-0.034) ng/mL NT-Pro-B Natriuret Pep pg/mL Total Protein (6.3-8.2) g/dL Albumin (3.5-5.0) g/dL - EKG Data -: EKG Interpreted by Me (EKG is sinus tachycardia 102 WI 128 QRS 101 QTC 408) - Radiology Data Radiology results: report reviewed (Chest x-ray is negative for acute disease), image reviewed Disposition Clinical Impression: Acute exacerbation of chronic obstructive pulmonary disease Disposition: HOME SELF-CARE Condition: Good Instructions (If sedation given, give patient instructions): Acute Bronchitis (ED), Chronic Bronchitis (ED), Bronchospasm (ED) Prescriptions: predniSONE 50 mg PO DAILY #5 tab Albuterol Inhaler [Ventolin Hfa Inhaler] 1 - 2 puff INHALATION Q6H PRN #1 each PRN Reason: Dyspnea Albuterol Nebulized [Ventolin Nebulized] 2.5 mg INHALATION Q4H 8 Days #300 ml Is patient prescribed a controlled substance at d/c from ED?: No Referrals: Andrea Ascencio MD [Primary Care Provider] - 1-2 days Time of Disposition: 02:50
[2025-03-31] MEDS: SODIUM CHLORIDE 0.9% 1,000 ML IV ONE (01:04)
[2025-03-31] MEDS: IPRATROPIUM 0.5 MG/2.5 ML NEBU INHALATION STA (01:05)
[2025-03-31] MEDS: ALBUTEROL NEBULIZED 2.5 MG/3 ML INHALATION STA (01:05)
[2025-03-31] MEDS: methylPREDNISolone SOD SUCCI 125 MG/2 ML VIAL IV STA (01:06)
[2025-03-31 01:08] LABS: Basophils # (A) 0.06 10*3/uL (0.00-0.10); Basophils % (A) 0.5 %; Eosinophils % (A) 2.5 %; HCT 39.7 % (39.6-50.0); HGB 13.6 g/dL (13.0-17.0); Lymphocytes # (A) 3.07 10*3/uL (0.90-5.00); MCH 29.4 pg (27.0-32.0); MCHC 34.3 g/dL (32.0-37.0); MCV 85.7 fL (80.0-97.0); Mean Platelet Volume 9.7 fL (9.5-12.2); Monocytes # (A) 0.94 10*3/uL (0.20-1.00); Neutrophils # (A) 7.39 10*3/uL (1.80-7.70); Neutrophils % (A) 62.5 %; Platelet Count 329 10*3/uL (140-440); RBC 4.63 10*6/uL (4.40-5.60); RDW 15.5 % (11.5-14.5); WBC 11.82 10*3/uL (4.50-10.00)
[2025-03-31 01:32] LABS: ALT 24 U/L (4-49); AST 24 U/L (17-59); African American GFR (CKD) 57 (>60 ml/min/1.73 sqM); Albumin 4.7 g/dL (3.5-5.0); Alkaline Phosphatase 83 U/L (38-126); Anion Gap 14 mmol/L; Blood Urea Nitrogen 26 mg/dL (9-20); Calcium 9.6 mg/dL (8.4-10.2); Carbon Dioxide 20 mmol/L (22-30); Chloride 105 mmol/L (98-107); Glucose 112 mg/dL (74-99); Magnesium 2.4 mg/dL (1.6-2.3); Non-African American GFR(CKD) 49 (>60 ml/min/1.73 sqM); Potassium 4.1 mmol/L (3.5-5.1); Sodium 139 mmol/L (137-145); Total Bilirubin 0.6 mg/dL (0.2-1.3); Total Protein 7.2 g/dL (6.3-8.2)
[2025-03-31 01:41] LABS: NT-Pro-B-Type Natriuretic Pept 74 pg/mL
--- NOTE | 2025-03-31 01:43 | XR ---
EXAM: XR Chest, 1 View CLINICAL HISTORY: ITS.REASON XR Reason: sob TECHNIQUE: Frontal view of the chest. COMPARISON: No relevant prior studies available. FINDINGS: Lungs: Unremarkable. No consolidation. Pleural space: Unremarkable. No pneumothorax. Heart: Unremarkable. No cardiomegaly. Mediastinum: Unremarkable. Bones/joints: Unremarkable. IMPRESSION: Normal chest x-ray.
[2025-03-31] MEDS: MAGNESIUM SULFATE-D5W PMX 1 GM in DEXTROSE/WATER 1 100ML.BAG IVPB STA (01:46)
[2025-03-31] MEDS: MORPHINE SULFATE 2 MG/ML SYRINGE IVP STA (01:48)
[2025-03-31 01:49] LABS: Partial Thromboplastin Time 29.4 sec (22.0-30.0); Prothrombin Time 10.8 sec (10.0-12.5)
[2025-03-31] MEDS: IPRATROPIUM-ALBUTEROL 3 ML NEB INHALATION STA (02:14)
[2025-03-31] MEDS: BENZONATATE 100 MG CAP PO STA (02:25)
[2025-03-31] MEDS: DEXAMETHASONE SOD PHOSPHATE 10 MG/ML 1 ML VIAL IVP STA (02:26)
[2025-03-31] MEDS: KETOROLAC 15 MG/ML 1 ML VIAL IVP STA (02:27)
[2025-03-31] MEDS: AZITHROMYCIN 500 MG in SODIUM CHLORIDE 0.9% 250 ML IVPB STA (02:38)
[2025-03-31 02:40] VITALS: BP 134/84; PULSE 86; RESP 19
[2025-03-31] MEDS: AZITHROMYCIN 500 MG TAB PO STA (02:55)
[2025-03-31] MEDS: SODIUM CHLORIDE 0.9% 1,000 ML IV SCH (02:57)
== END 2025-03-31 02:59 | disposition home or self-care (01) ==
LOC: EC 00:36
DX: J44.1 Chronic obstructive pulmonary disease with (acute) exacerbation (principal); R00.0 Tachycardia, unspecified; F17.200 Nicotine dependence, unspecified, uncomplicated
CPT/HCPCS: 36415; 94640 ×2; 93005; 83880; 80053; 83605; 83735; 84484; 85025; 85610; 85730; 71045; 99285; 96365; 96375; 96361; J1100; J3475; J1885; J2919